=== PATIENT | male | born 1945 | race Caucasian/White ===

== ENCOUNTER 2024-11-02 15:54 | Emergency (ER) | payer OTHER, SELFPAY ==
--- OUTSIDE RECORDS SUMMARY | 2024-11-02 15:56 | XMS_ITS | Continuity of Care Document ---
Author Organization [place] [facility] Address [address] 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 1) Bladder cancer - cytology neg and CTU without worrisome findings - f/u [address] Chest + CT Urogram, CBC, BMP, cytology, Vit B12, PSA 2) Prostate cancer - GIOVANNI - PSA in 6 months 3) Neuroendocrine tumor of the appendix - per Dr. Jung; surveillance 4) Lung nodule - seeing thoracic at [facility] 11/06/24 michelle Not available 10/22/2024 11:56:23 Plan of Treatment Reminders Order Date Submit Date Provider Last Modified By Organization Details Last Modified Time Details Appointments None recorded. Lab None recorded. Referral thoracic surgeon referral - h/o bladder cancer, new 2 cm lung nodule 2024 025 MARIA DE JESUS Puentes MD, [facility] - [facility], [address], [place], [address], 5 12:01:01 Procedures None recorded. Surgeries None recorded. Imaging None recorded. Medication Orders None recorded. Patient TargetsNo targets recorded. Patient InstructionsNo instructions recorded. Reason for Referral Thoracic Surgeon Referral fo r Malignant neoplasm of urinary bladder h/o bladder cancer, new 2 cm lung nodule Referring Physician: Keegan Echeverria, Urology, Encounter Date: 10/22/2024 Results Created Date Observation Date Name Description Value Unit Range Abnormal Flag Note LastModifiedBy Organization Detail LastModifiedTime 10/21/1910/20/2024 CT, chest + abdom en + pelvi s, w/ contr ast No observ ation record ed. [facility] [address] [place], [address], 10/22/2024 11:41:36 10/21/1910/20/2024 CT, urogr am No observ ation record ed. [facility] [address] [place], [address], 10/22/2024 11:41:36 Result Notes None recorded. Problems Name Problem SNOMED Code Status Onset Date Resolution Date Notes Provider Name and Address Organization Details Recorded Time Malignant neoplasm of urinary bladder 809596380 Active 2021 Teresa tadeo [facility] 4 13:38:39 Malignant tumor of prostate 809772369 Active 2022 Keegan butt MD, PHD [address], [address] , 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 2013375150110 00 Active 2017 Teresa tadeo [facility] 4 13:38:39 Myocardial infarction 50618839 Active 2013 Teresa tadeo, [facility] 4 13:38:39 Eruption 227548826 Active 2008 Teresa tadeo [facility] 4 13:38:39 Patient encounter status 796593909 Active 2009 Teresa tadeo [facility] 4 13:38:39 Dyslipidemi a 253395973 Active 2010 Teresa tadeo [facility] 4 13:38:39 Hypertensiv e disorder 65931243 Active 2014 Teresa tadeo [facility] 4 13:38:39 Coronary arterioscle rosis 16102544 Active 2013 Teresa tadeo [facility] 4 13:38:39 Rheumatoid arthritis 78595838 Active 2009 Teresa tadeo [facility] 4 13:38:39 Typical atrial flutter 838398264 Active Teresa tadeo [facility] 4 13:38:40 Pulmonary emphysema 10798072 Active 2014 Teresa tadeo [facility] 4 13:38:40 Problem Notes None recorded. Procedures Surgical History Date Name Laterality Status Provider Name and Address Organization Details Recorded Time 10/23/19 25 COMPLEX VISIT completed Angella Stover [facility] 10/15/2024 10:40:26 04/23/20 24 COMPLEX VISIT completed Keegan odell MD, PHD [address] [place] [address], [address], [facility] 04/23/2024 15:27:51 03/06/20 24 COMPLEX VISIT completed Emiliana Ellis PA-C [address] [place] [address],[address], [address], [facility] 03/06/2024 13:56:56 10/26/19 24 COMPLEX VISIT completed Keegan odell MD, PHD [address] [place] [address],[address], [place], [address], [facility] 10/26/2023 11:30:38 10/26/19 24 BEVERAGE SPECIALIST/blood draw completed Quintin Rincon [facility] 10/26/2023 10:52:25 11/17/19 23 Cystoscopy- male completed Keegan odell MD, PHD [address] [place] [address],[address], [place], [address], [facility] 11/16/2022 09:48:08 10/20/19 23 Blood Draw/BEVERAGE SPECIALIST/PSA RESULTS completed Keegan odell MD, PHD [address] [place] [address],[address], [place], [address], [facility] 10/19/2022 10:57:18 10/05/19 22 complete cystectomy completed Shazia Baires [facility] 10/20/2021 11:39:47 08/01/19 22 TRANSURETHRAL RESECTION OF BLADDER TUMOR (SURG) completed Irina Gould [facility] 08/31/2021 16:31:21 05/12/20 21 Cystoscopy- male completed James Snyder MD [address] [place] [address],[address], [place], [address], [facility] 05/12/2021 12:34:03 03/01/20 21 UroCuff completed Quintin Rincon [facility] 03/02/2021 12:01:51 03/01/20 21 Bladder Scan completed Quintin Rincon [facility] 03/02/2021 11:56:17 07/30/19 17 colonoscopy completed Angella [facility]over [facility] 09/14/2021 10:54:28 04/29/19 84 Cholecystectomy completed Stephie Dennis [facility] 05/10/2021 12:08: Imaging Results None recorded. Procedure Notes None recorded. Medical Equipment None Reported. Medications Name Sig Start Date Stop Date Status Note LastModified by Organization Details LastModified Time lidoc/predn /[place]/chelsy r/nysta DIANE, RINSE AND SPIT 15ML TO 30ML EVERY 4 HOURS NEEDED 10/19 completed Not Available Not Available Not Available lidoc/diphe /[place]/pred n/nysta SWISH, RINSE AND SPIT 15-30 ML EVERY 4 HOURS NEEDED 10/19 completed Not Available Not Available Not Available nystat/qdry l/lido/pred /maal SHAKE WELL AND TAKE 15-30MLS BY MOUTH EVERY FOUR HOURS NEEDED. DO NOT SWALLOW. 10/19 completed Not Available Not Available Not Available ascorbic acid (vitamin C) 1,000 mg tablet 1000 mg by oral route. active Not Available Not Available No t Available prednisone 10 mg tablet TAKE THREE TABLETS BY MOUTH EVERY DAY FOR 2 DAYS THEN TAKE TWO TABLETS BY MOUTH EVERY DAY FOR 2 DAYS THEN TAKE ONE TABLET BY MOUTH EVERY DAY 10/25 completed Not Available Not Available Not Available doxycycline hyclate 100 mg capsule Take 1 capsule twice a day by oral route. 10/19 completed Not Available Not Available Not Available atorvastati n 20 mg tablet TAKE ONE TABLET BY MOUTH AT BEDTIME active Not Available Not Available No t Available prednisolon e sodium phosphate 15 mg/5 mL (3 mg/mL) oral solution 10/19 completed Not Available Not Available Not Available oxybutynin chloride ER 10 mg tablet,exte nded release 24 hr TAKE ONE TABLET BY MOUTH EVERY DAY 10/19 completed Not Available Not Available Not Available azithromyci n 250 mg tablet TAKE TWO TABLETS BY MOUTH ONE DOSE ON THE FIRST DAY, THEN TAKE ONE DAILY THEREAFTE R. 04/23 completed Not Available Not Available Not Available Lidocaine Viscous 2 % mucosal solution SWISH AND SPIT 15MLS BY MOUTH EVERY 4 HOURS IF NEEDED (MOUTH PAIN) 10/19 completed Not Available Not Available Not Available amiodarone 200 mg tablet TAKE ONE TABLET BY MOUTH EVERY DAY 01/18 completed Not Available Not Available Not Available hydrocodone 5 mg-acetamin ophen 325 mg tablet TAKE ONE TABLET BY MOUTH EVERY 6 HOURS NEEDED FOR SEVERE PAIN. MAXIMUM DAILY DOSE IS 4 TABLETS 10/22 completed Not Available Not Available Not Available prednisone 20 mg tablet TAKE TWO TABLETS BY MOUTH EVERY DAY WITH A MEAL FOR 5 DAYS 10/25 completed Not Available Not Available Not Available sennosides 8.6 mg-docusate sodium 50 mg tablet 0 {tbl}s by oral route. 2021 active Not Available Not Available Not Avai lable oxycodone 5 mg/5 mL oral solution TAKE 5MLS BY MOUTH EVERY 4 HOURS IF NEEDED FOR PAIN. MAY TAKE LESS THAN 5MLS AT A TIME. DO NOT EXCEED 5MLS BY MOUTH EVERY 4 HOURS. 10/19 completed Not Available Not Available Not Available ciprofloxac in 500 mg tablet TAKE ONE TABLET BY MOUTH TWICE A DAY FOR 7 DAYS 10/20 completed Not Available Not Available Not Available tramadol 50 mg tablet TAKE ONE TABLET BY MOUTH EVERY 6 HOURS NEEDED FOR PAIN 10/22 completed Not Available Not Available Not Available triamcinolo ne acetonide 0.1 % topical cream APPLY TO AFFECTED AREA(S) TWO TIMES A DAY 10/22 completed Not Available Not Available Not Available clobetasol 0.05 % topical gel APPLY TO AFFECTED AREA(S) FOUR TO SIX TIMES PER DAY 10/19 completed Not Available Not Available Not Available ciclopirox 8 % topical solution APPLY TO AFFECTED AREA(S) AT BEDTIME active Not Available Not Available No t Available methotrexat e sodium 2.5 mg tablet TAKE FOUR TABLETS BY MOUTH ONCE WEEKLY active Not Available Not Available No t Available amiodarone 400 mg tablet 400 mg by oral route. 10/19 completed Not Available Not Available Not Available tamsulosin 0.4 mg capsule TAKE ONE CAPSULE BY MOUTH EVERY DAY AFTER A MEAL 10/19 completed Not Available Not Available Not Available benzonatate 100 mg capsule TAKE ONE CAPSULE BY MOUTH THREE TIMES A DAY NEEDED FOR COUGH 10/25 completed Not Available Not Available Not Available erythromyci n 5 mg/gram (0.5 %) eye ointment APPLY SMALL AMOUNT TO EYELID TWICE DAILY 10/22 completed Not Available Not Available Not Available nitroglycer in 0.[address] 1 TABLET UNDER THE TONGUE AT THE 1ST SIGN OF ATTACK. IF PAIN IS UNRELIEVE D OR WORSENED 5 MINS AFTER 1ST DOSE, PROMPT MEDICAL ASSISTANC 10/22 completed Not Available Not Available Not Available folic acid 1 mg tablet TAKE ONE TABLET BY MOUTH EVERY DAY active Not Available Not Available No t Available codeine 10 mg-guaifene sin 100 mg/5 mL oral liquid TAKE 10ML EVERY 4 HOURS NEEDED FOR COUGH 10/25 completed Not Available Not Available Not Available prednisolon e 15 mg/5 mL oral solution 10/19 completed Not Available Not Available Not Available cefuroxime axetil 500 mg tablet TAKE ONE TABLET BY MOUTH TWICE A DAY FOR 10 DAYS 10/25 completed Not Available Not Available Not Available levofloxaci n 750 mg tablet TAKE ONE TABLET BY MOUTH EVERY DAY FOR 5 DAYS 10/25 completed Not Available Not Available Not Available albuterol sulfate HFA 90 mcg/actuati on aerosol inhaler INHALE TWO PUFFS BY MOUTH EVERY 4 HOURS WHILE AWAKE active Not Available Not Available No t Available ferrous sulfate 325 mg (65 mg iron) tablet,liza yed release TAKE ONE TABLET BY MOUTH TWICE A DAY WITH MEALS active Not Available Not Available No t Available fluticasone propionate 50 mcg/actuati on nasal spray,suspe nsion APPLY TWO SPRAYS INTO EACH NOSTRIL EVERY DAY active Not Available Not Available No t Available doxycycline hyclate 100 mg tablet TAKE ONE TABLET BY MOUTH TWICE A DAY FOR 10 DAYS 03/06 completed Not Available Not Available Not Available finasteride 5 mg tablet TAKE ONE TABLET BY MOUTH EVERY MORNING 10/19 completed Not Available Not Available Not Available amoxicillin 875 mg-potassiu m clavulanate 125 mg tablet TAKE 1 TABLET BY MOUTH TWICE DAILY WITH MEALS FOR 10 DAYS 10/25 completed Not Available Not Available Not Available oxycodone 5 mg tablet TAKE ONE TABLET BY MOUTH EVERY 6 HOURS NEEDED FOR PAIN active Not Available Not Available No t Available metoprolol tartrate 25 mg tablet TAKE ONE-HALF TABLET BY MOUTH EVERY DAY 10/19 completed Not Available Not Available Not Available chlorhexidi ne gluconate 0.12 % mouthwash 10ML SWISH AND SPIT FOR 30 SECONDS TWICE DAILY FOR ONE WEEK AFTER PROCEDURE . START TOMORROW 10/22 completed Not Available Not Available Not Available cholecalcif cade (vitamin D3) 25 mcg (1,000 unit) tablet 1000 units by oral route. 2012 active Not Available Not Available Not Avai lable Aerochamber Plus Flow-Vu USE WITH INHALER 10/19 completed Not Available Not Available Not Available Xarelto 20 mg tablet TAKE ONE TABLET BY MOUTH EVERY DAY WITH EVENING MEAL active Not Available Not Available No t Available Myrbetriq 50 mg tablet,exte nded release TAKE ONE TABLET BY MOUTH EVERY DAY 10/19 completed Not Available Not Available Not Available Breo Ellipta 100 mcg-25 mcg/dose powder for inhalation INHALE ONE PUFF BY MOUTH EVERY DAY active Not Available Not Available No t Available Incruse Ellipta 62.5 mcg/actuati on powder for inhalation INHALE 1 PUFF BY MOUTH ONCE DAILY, DISCARD INHALER 6 WEEKS AFTER OPENING OR WHEN COUNTER READS 0. active Not Available Not Available No t Available Trelegy Ellipta 200 mcg-62.5 mcg-25 mcg powder for inhalation INHALE ONE PUFF BY MOUTH EVERY DAY active Not Available Not Available No t Available Vitals Date Recorded Body height Body mass index (BMI) Body weight Provider Name and Address Organization Details Last Updated DateTime 10/22/2024 180.34 cm 26.1 kg/m2 70767.77 g Keegan miller MD, PHD [address] [place] [address], [address], [place] [facility] 10/22/2024 11:27:36 Social History Question Answer Notes LastModified by Organizat ion Details LastModified Time Tobacco Smoking Status [facility] 12:08:01 What Is Your Level Of Alcohol Consumption? None Information not available 05/10/2021 Are You Currently Employed? No RETIRED Information not available 05/10/2021 When Did You Quit Smoking? 1-5yearssin sherronastcieben ette QUIT: 07/14/2017 Information not available 05/10/2021 Race WHITE Information no t available 05/10/2021 Ethnicity Not /La feli Information not available 05/10/2021 Preferred Language Tamazight Information not available 05/10/2021 Recreational Drug Use No Information not available 05/10/2021 Could You Be ? No Information not available 05/10/2021 What Was The Date Of Your Most Recent Tobacco Screening? 10/22/2024 michelle Information not available 10/22/2024 What Is Your Relationship Status? [place] Information not available 05/10/2021 Do You Use Any Illicit Or Recreational Drugs? No [place] Information not available 05/10/2021 How Many Years Have You Smoked Tobacco? 51.00 [place] Information not available 05/10/2021 Do You Or Have You Ever Used Any Other Forms Of Tobacco Or Nicotine? No [place] Information not available 05/10/2021 Sex: Unknown Functional Status None recorded. Mental Status None recorded. Family History Relationship Description Onset Age of this Age Resolved Age Notes LastModified by Organization Details LastModified Time Mother Family history of diabetes mellitus ts[place]ard Not available 05/10 12:12:25 Father Family history of cardiac disorder Not available 05/10 12:12:33 Medical History Condition Response High Blood Pressure Y Kidney Stones N Depression N Sexually Transmitted Infection N Cancer Y Bleeding Disorder N Lung Disease Y GERD/Acid Reflux N High Cholesterol N Diabetes N Heart Disease Y Immunizations Vaccine Type Date Status Note Provider Nam e and Address Organization Details Recorded Time Influenza, adjuvanted, trivalent, PF 9 completed Irina [place] null, [facility] 07/18/2023 17:39:16 Influenza, adjuvanted, trivalent, PF 7 completed Irina Luis Fernando null, [facility] 07/18/2023 17:39:16 Influenza, adjuvanted, trivalent, PF 8 completed Irina Luis Fernando null, [facility] 07/18/2023 17:39:16 Influenza, adjuvanted, quadrivalent, PF 0 completed Irina [place] null, [facility] 07/18/2023 17:39:16 Influenza, adjuvanted, quadrivalent, PF 1 completed Irina [place] null, [facility] 07/18/2023 17:39:16 Tdap 2 completed Irina Luis Fernando null, [facility] 07/18/2023 17:39:31 Tdap 9 completed Magali Conti null, [facility] 07/19/2023 14:47:35 Influenza, high-dose, trivalent, PF 6 completed Irina [place] null, [facility] 07/18/2023 17:39:16 Influenza, high-dose, trivalent, PF 5 completed Irina [place] null, [facility] 07/18/2023 17:39:16 Influenza, split virus, trivalent, preservative 3 completed Irina [place] null, [facility] 07/18/2023 17:39:32 Influenza, split virus, trivalent, preservative 1 completed Magali Teska null, [facility] 07/19/2023 14:47:35 Influenza, split virus, trivalent, preservative 3 completed Irina Luis Fernando null, [facility] 07/18/2023 17:39:32 Td (adult), 2 Lf tetanus toxoid, preservative free, adsorbed 9 completed Magali Teska null, [facility] 07/19/2023 14:49:08 Influenza, split virus, quadrivalent, PF 4 completed Irina [place] null, [facility] 07/18/2023 17:39:32 zoster recombinant 3 completed Magali Teska null, [facility] 07/19/2023 14:48:32 zoster recombinant 3 completed Magali Teska null, [facility] 07/19/2023 14:49:08 Influenza, adjuvanted, quadrivalent, PF 3 completed Magali Teska null, [facility] 07/19/2023 14:49:08 Influenza, adjuvanted, quadrivalent, PF 2 completed Magali Teska null, [facility] 07/19/2023 14:48:32 COVID-19, mRNA, LNP-S, PF, 30 mcg/0.3 mL dose, parminder-sucrose 2 completed Magali Teska null, [facility] 07/19/2023 14:47:35 COVID-19, mRNA, LNP-S, bivalent, PF, 30 mcg/0.3 mL dose 2 completed Magali tadeo [facility] 07/19/2023 14:48:08 COVID-19, mRNA, LNP-S, PF, 50 mcg/0.5 mL 3 completed Not Available [facility] 10/22/2024 10:28:41 Influenza, adjuvanted, trivalent, PF 4 completed Not Available [facility] 10/22/2024 10:28:41 RSV, bivalent, protein subunit RSVpreF, diluent reconstituted, 0.5 mL, PF 4 completed Not Available [facility] 10/22/2024 10:28:41 COVID-19, mRNA, LNP-S, PF, 30 mcg/0.3 mL dose 1 completed Irina tadeo [facility] 07/18/2023 17:39:31 COVID-19, mRNA, LNP-S, PF, 30 mcg/0.3 mL dose 1 completed Irina tadeo [facility] 07/18/2023 17:39:31 COVID-19, mRNA, LNP-S, PF, 30 mcg/0.3 mL dose 1 completed Irina tadeo [facility] 07/18/2023 17:39:31 [facility] 13 [facility] 17:39:32 pneumococcal polysaccharide PPV23 9 completed Magali tadeo [facility] 07/19/2023 14:47:35 Past Encounters Encounter ID Performer Location Encounter Start Date Encounter Closed Date Diagnosis/Indication Diagnosis SNOMED-CT Code Diagnosis ICD10 Code Diagnosis Note [id number] Keegan murry MD, PHD [facility] [address] [address] 10/22/2024 10:26:27 10/27/2024 16:33:56 Malignant neoplasm of urinary bladder 975316441 C67.9 Malignant tumor of prostate 355602901 C61 Urostomy present 2364654 04 Z93.6 Health Concerns Section Related Observation LastModified by Organization Detai ls LastModified Time None Recorded Concern Status LastModified by Organization Details LastModified Time None Recorded Payers Encounter Date Sequence Insurance Name Policy Number Policy Bruner Covered Member ID Bruner Member ID Guarantor Name 10/22/2024 1 [employer] Paul Barry [id number] Paul Barry Notes Date Note Type Note Provider Name and Address Organization Details Recorded Time 10/22/2024 text/html 79M s/p RC/IC on 10/04/21 for pT1N0 bladder cancer (-SMS, -LVI, 0/ LN) and incidental pT2N0 [place] 3+4=7 prostate cancer (-SMS, -SVI, -LVI, 0/ LN). 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 No recent hematuria. Here with and daughter. Imagin09/15/21 CT A/P: multi-focal bladder wall masses occupying >50% of the bladder; asymmetric enlargement of the prostate L>R; minimal dilation of right distal ureter; no evidence of distant mets01/04/22: CT A/P: LLL pneumonia, no hydro, seroma in right pelvis04/17/22: CT C/A/P: no hydro, no evidence recurrence10/16/22: CT C/A/P: no hydro, no evidence recurrence04/09/23: CT C/A/P: no hydro, no evidence recurrence, stable left 6th rib lesion10/14/23: CT C/A/P: no hydro, no evidence recurrence, + LLL pneumonia03/13/24: CT C/A/P: no hydro, new 5mm RUL pulmonary nodule, stable indeterminate right mid renal lesions10/20/24: CT C/A/P: no hydro, no LAD, no evidence metastasis, new 2 cm RUL pulmonary nodule, stable indeterminate right mid renal lesions Labs:10/11/21 Cr 0.84, Hgb 10.83/ NITIN Cr 0.7612/16/21: Cr 1.09, Hgb 12.09/; Cr 0.98, Hgb 13.5, PSA <0.033/: Cr 0.90, Hgb 13.1, cytol NEM9/03/21: Cr 0.94, Hgb 13.2, B12 482, cytol NEM3/: Cr 0.98, Hgb 12.19/: cytol NEM3/: cytol NEM, Cr 0.86, Hgb 12.4, B12 470 PSA Results3: <0.049/03/21: <0.023/: <0.043/: <0.02 PMH: CAD s/p stent (>10 yrs ago), COPD, HL, RA (methotrexate)PSH: open choleSocHx: can walk a block, riding lawnmowerOcc:Tob: 1 ppd x 50 yrs; quit 2016EtOH: denies FamHx:no bladder ca Keegan Moralez MD, PHD [address] [facility],[address], [place], [address], [facility] 10/22/2024 11:57:32
[2024-11-02 15:57] VITALS: BP 137/100; PULSE 66; RESP 18; TEMP 37.2; O2SAT 97; BMI 26.4
--- OUTSIDE RECORDS SUMMARY | 2024-11-02 15:57 | XMS_ITS | Continuity of Care Document ---
Author Organization [facility] Address [address] [place] [address] Phone Care Team Providers Care Healthcare Liaison Name Role Phone Doretha CASTILLO, Silvano Unavailable Unavailable Allergies, Adverse Reactions, Alerts Substance Reaction Status Criticality No Known Allergies Active No Inform ation Medications Medication Instructions Dosage Effective Dates (start - stop) Status Comments METHOTREXATE SODIUM 2.5MG TABS TAKE 4 TBALETS BY MOUTH ONCE WEEKLY - Active folic acid 1 mg tablet take 1 tablet (1M G) by oral route every day - Active atorvastatin 20 mg tablet take 1 tablet by oral route every day 20 MG - Active fluticasone propionate 50 mcg/actuation nasal spray,suspension inhale 1 spray by intranasal route every day in each nostril as needed - Active Senokot-S 8.6 mg-50 mg tablet take 1 tablet by oral route every day 1 tablet - Active Xarelto 20 mg tablet take 1 tablet by or al route every day with the evening meal 20 MG - Active albuterol sulfate HFA 90 mcg/actuation aerosol inhaler inhale 2 puff by inhalation route every 4 - 6 hours as needed - Active Vitamin C 1,000 mg tablet take 1 Tablet by Oral route every day 1 Tablet - Active nitroglycerin 0.[address] 1 tablet by sublingual route at the 1st sign of attack; may repeat every 5 min until relief; if pain persists after 3 tablets in 15 min, prompt medical attention is recommended 0.4 MG - Active Fish Oil 100 mg-160 mg-1,000 mg capsule take 1 Tablet by Oral route every day 1 Tablet - Active aspirin 81 mg tablet,delayed release take 1 tablet by oral route every day 81 MG - Active Vitamin D3 2,000 unit Cap Take 1 daily - Active Procedures Procedure Date Office/Outpatient Visit, Est Complex e/m visit add on Routine Venipuncture Assay Of Serum Albumin Assay Of Creatinine Transferase (Ast) (Sgot) Alanine Amino (Alt) (Sgpt) Complete Cbc WAuto Diff Wbc X-Ray Exam Of Knee, 1 Or 2v Drain/Inject, Joint/Bursa, Major 2023 Betamethasone Acet And Sod Phosp 2023 Office/Outpatient Visit, Est Surgical Trays Specimen Handling Office/Outpatient Visit, Est X-Ray Exam Of Knee, 3 Office/Outpatient Visit, Est Office/Outpatient Visit, Est Office/Outpatient Visit, Est Office/Outpatient Visit, Est Office/Outpatient Visit, Est Office/Outpatient Visit, Est Office/Outpatient Visit, Est Office/Outpatient Visit, Est Office/Outpatient Visit, Est Routine Venipuncture Assay Of Serum Albumin Assay Of Creatinine Transferase (Ast) (Sgot) Alanine Amino (Alt) (Sgpt) Complete Cbc WAuto Diff Wbc Office/Outpatient Visit, Est Office/Outpatient Visit, Est Office/Outpatient Visit, Est Office/Outpatient Visit, Est Office/Outpatient Visit, Est Office/Outpatient Visit, Est Office/Outpatient Visit, Est Office/Outpatient Visit, Est Office/Outpatient Visit, Est Office/Outpatient Visit, Est Routine Venipuncture Lactate (Ld) (Ldh) Enzyme Office/Outpatient Visit, Est Office/Outpatient Visit, Est Office/Outpatient Visit, Est Anti Rheum Drugthxpyrx'D/Gvn Advance Directives Directive Yes / No Effective Date File Name No Information Encounters Encounter Description Practice Location Reason(s) For Visit Diagnoses Date Provider Providers Copied on Encounter [facility] , [address], [place], [address], [place] tel:[phone] [facility] , No Information Skemp Silvano. [facility] [address], [place], [address], [place]. tel:[phone] [facility] , [address], [place], [address], [place] tel:[phone] [facility] , No Information 5 Skemp Silvano. [facility] [address], [place], [address], [place]. tel:[phone] Office/Outpa tient Visit, Est [facility] , [address], [place], [address], [place] tel:[phone] [facility] , Rheumatoid arthritis with rheumatoid factor of multiple sites without organ or systems involvementO ther intermediate (current) drug therapyEffus ion of right kneeOther chondrocalci nosis, left knee 4 Skemp Silvano. [facility] [address], [place], [address], [place]. tel:[phone] Referring Provider: Silvano Coyne A, [facility] [address], [place], [address]. tel:[phone] [facility] , [address], [place], [address], [place] tel:[phone] [facility] , No Information Sep-0 4 Skemp Silvano. [facility] [address], [place], [address], [place]. tel:[phone] Referring Provider: Silvano Coyne A, [facility] [address], [place], [address]. tel:[phone] Office/Outpa tient Visit, Est [facility] , [address], [place], [address], [place] tel:[phone] [facility] , Rheumatoid arthritis with rheumatoid factor of multiple sites without organ or systems involvementO ther ocean transportation intermediary (current) drug therapyEffus ion of right kneeOther chondrocalci nosis, left knee Sep-0 4 Skemp Silvano. [facility] [address], [place], [address], [place]. tel:[phone] Referring Provider: Silvano Bishop, [facility] [address], [place], [address]. tel:[phone] Office/Outpa tient Visit, Est [facility] , [address], [place], [address], [place] tel:[phone] [facility] , Rheumatoid arthritis with rheumatoid factor of multiple sites without organ or systems involvementP ain in left kneeOther ocean transportation intermediary (current) drug therapyPrima ry osteoarthrit is of left kneeOther chondrocalci nosis, left knee Vinnie-2 4 Skemp Silvano. [facility] [address], [place], [address], [place]. tel:[phone] Referring Provider: Silvano Bishop, [facility] [address], [place], [address]. tel:[phone] [facility] , [address], [place], [address], [place] tel:[phone] [facility] , No Information 3 Skemp Silvano. [facility] [address], [place], [address], [place]. tel:[phone] Referring Provider: Silvano Bishop, [facility] [address], [place], [address]. tel:[phone] Office/Outpa tient Visit, Est [facility] , [address], [place], [address], [place] tel:[phone] [facility] , Rheumatoid arthritis with rheumatoid factor of multiple sites without organ or systems involvementO ther ocean transportation intermediary (current) drug therapyPain in lt kneeHyponatr emiaOther chondrocalci nosis, left knee 3 Skemp Silvano. [facility] [address], [place], [address], [place]. tel:[phone] Referring Provider: Silvano Bishop, [facility] [address], [place], [address]. tel:[phone] Office/Outpa tient Visit, Est [facility] , [address], [place], [address], [place] tel:[phone] [facility] , Rheumatoid arthritis with rheumatoid factor of multiple sites without organ or systems involvementO ther ocean transportation intermediary (current) drug therapyPain in unspecified knee 3 Skemp Silvano. [facility] [address], [place], [address], [place]. tel:[phone] Referring Provider: Silvano Bishop, [facility] [address], [place], [address]. tel:[phone] Office/Outpa tient Visit, Est [facility] , [address], [place], [address], [place] tel:[phone] [facility] , Rheumatoid arthritis with rheumatoid factor of multiple sites without organ or systems involvementO ther ocean transportation intermediary (current) drug therapy 3 Skemp Silvano. [facility] [address], [place], [address], [place]. tel:[phone] Referring Provider: Silvano Bishop, [facility] [address], [place], [address]. tel:[phone] Office/Outpa tient Visit, Est [facility] , [address], [place], [address], [place] tel:[phone] [facility] , Rheumatoid arthritis with rheumatoid factor of multiple sites without organ or systems involvementO ther intermediate (current) drug therapy 2 Skemp Silvano. [facility] [address], [place], [address], [place]. tel:[phone] Referring Provider: Silvano Bishop [facility] [address], [place], [address]. tel:[phone] Office/Outpa tient Visit, Est [facility] , [address], [place], [address], [place] tel:[phone] [facility] , Rheumatoid arthritis with rheumatoid factor of multiple sites without organ or systems involvementO ther ocean transportation intermediary (current) drug therapy Skemp Silvano. [facility] [address], [place], [address], [place]. tel:[phone] Referring Provider: Silvano Bishop, [facility] [address], [place], [address]. tel:[phone] Office/Outpa tient Visit, Est [facility] , [address], [place], [address], [place] tel:[phone] [facility] , Rheumatoid arthritis (chief complaint)Mo nitor Chronic High Risk Meds (chief complaint) Rheumatoid arthritis with rheumatoid factor of multiple sites without organ or systems involvementO ther intermediate (current) drug therapy Skemp Silvano. [facility] [address], [place], [address], [place]. tel:[phone] Referring Provider: Silvano Bishop, [facility] [address], [place], [address]. tel:[phone] Office/Outpa tient Visit, Est [facility] , [address], [place], [address], [place] tel:[phone] [facility] , Rheumatoid arthritis (chief complaint)Mo nitor Chronic High Risk Meds (chief complaint) Rheu arthritis w rheu factor mult site w/o org/sys involvOther intermediate (current) drug therapy Sep-1 4-202 0 Skemp Silvano. [facility] [address], [place], [address], [place]. tel:[phone] Referring Provider: Silvano Bishop, [facility] [address], [place], [address]. tel:[phone] [facility] , [address], [place], [address], [place] tel:[phone] [facility] , No Information 0 Skemp Silvano. [facility] [address], [place], [address], [place]. tel:[phone] Office/Outpa tient Visit, Est [facility] , [address], [place], [address], [place] tel:[phone] [facility] , Rheumatoid arthritis (chief complaint)Mo nitor Chronic High Risk Meds (chief complaint) Rheu arthritis w rheu factor mult site w/o org/sys involvOther intermediate (current) drug therapy 0 Skemp Silvano. [facility] [address], [place], [address], [place]. tel:[phone] Referring Provider: Silvano Bishop, [facility] [address], [place], [address]. tel:[phone] Office/Outpa tient Visit, Est [facility] , [address], [place], [address], [place] tel:[phone] [facility] , Rheumatoid arthritis (chief complaint)Mo nitor Chronic High Risk Meds (chief complaint) Rheu arthritis w rheu factor mult site w/o org/sys involvOther ocean transportation intermediary (current) drug therapy 9 Skemp Silvano. [facility] [address], [place], [address], [place]. tel:[phone] Referring Provider: Silvano Bishop, [facility] [address], [place], [address]. tel:[phone] Office/Outpa tient Visit, Est [facility] , [address], [place], [address], [place] tel:[phone] [facility] , Rheumatoid arthritis (chief complaint)Mo nitor Chronic High Risk Meds (chief complaint) Rheu arthritis w rheu factor [facility] w/o org/sys involvOther intermediate (current) drug therapy 8 Skemp Silvano. [facility] [address], [place], [address], [place]. tel:[phone] Referring Provider: Silvano Bishop, [facility] [address], [place], [address]. tel:[phone] Office/Outpa tient Visit, Est [facility] , [address], [place], [address], [place] tel:[phone] [facility] , Rheumatoid arthritis (chief complaint) Rheumatoid arthritis with rheumatoid factor of multiple sites without organ or systems involvementO ther intermediate (current) drug therapy 8 Skemp Silvano. [facility] [address], [place], [address], [place]. tel:[phone] Referring Provider: Silvano Bishop, [facility] [address], [place], [address]. tel:[phone] Office/Outpa tient Visit, Est [facility] , [address], [place], [address], [place] tel:[phone] [facility] , Rheumatoid arthritis (chief complaint)Mo nitor Chronic High Risk Meds (chief complaint) Rheumatoid arthritis with rheumatoid factor of multiple sites without organ or systems involvementO ther ocean transportation intermediary (current) drug therapy Skemp Silvano. [facility] [address], [place], [address], [place]. tel:[phone] Referring Provider: Silvano Bishop, [facility] [address], [place], [address]. tel:[phone] Office/Outpa tient Visit, Est [facility] , [address], [place], [address], [place] tel:[phone] [facility] , Rheumatoid arthritis (chief complaint)Mo nitor Chronic High Risk Meds (chief complaint) Rheumatoid arthritis with rheumatoid factor of multiple sites without organ or systems involvementO ther intermediate (current) drug therapy Skemp Silvano. [facility] [address], [place], [address], [place]. tel:[phone] Referring Provider: Silvano Bishop [facility] [address], [place], [address]. tel:[phone] Office/Outpa tient Visit, Est [facility] , [address], [place], [address], [place] tel:[phone] [facility] , Rheumatoid arthritis (chief complaint)Mo nitor Chronic High Risk Meds (chief complaint) Rheumatoid arthritis with rheumatoid factor of multiple sites without organ or systems involvementH ematuriaOthe r intermediate (current) drug therapyPerso nal history of nicotine dependence 6 Skemp Silvano. [facility] [address], [place], [address], [place]. tel:[phone] Referring Provider: Silvano Bishop, [facility] [address], [place], [address]. tel:[phone] Office/Outpa tient Visit, Est [facility] , [address], [place], [address], [place] tel:[phone] [facility] , Rheumatoid arthritis (chief complaint)Mo nitor Chronic High Risk Meds (chief complaint) Rheumatoid arthritis with rheumatoid factor of multiple sites without organ or systems involvementO ther ocean transportation intermediary (current) drug therapyHemat uria 6 Skemp Silvano. [facility] [address], [place], [address], [place]. tel:[phone] Referring Provider: Silvano Bishop [facility] [address], [place], [address]. tel:[phone] Office/Outpa tient Visit, Est [facility] , [address], [place], [address], [place] tel:[phone] [facility] , Rheumatoid arthritis (chief complaint)Mo nitor Chronic High Risk Meds (chief complaint) Rheumatoid arthritis with rheumatoid factor of multiple sites without organ or systems involvementO ther intermediate (current) drug therapy 5 Skemp Silvano. [facility] [address], [place], [address], [place]. tel:[phone] Referring Provider: Silvano Coyne A, [facility] [address], [place], [address]. tel:[phone] Office/Outpa tient Visit, Est [facility] , [address], [place], [address], [place] tel:[phone] [facility] , Rheumatoid arthritis (chief complaint)Mo nitor Chronic High Risk Meds (chief complaint) Rheumatoid [facility] 5 Skemp Silvano. [facility] [address], [place], [address], [place]. tel:[phone] Referring Provider: Silvano Coyne A, [facility] [address], [place], [address]. tel:[phone] Office/Outpa tient Visit, Est [facility] , [address], [place], [address], [place] tel:[phone] [facility] , Rheumatoid Arthritis (chief complaint)Mo nitor chronic high risk medications (chief complaint) Rheumatoid [facility] 4 Skemp Silvano. [facility] [address], [place], [address], [place]. tel:[phone] Referring Provider: Silvano Haileemp A, [facility] [address], [place], [address]. tel:[phone] Office/Outpa tient Visit, Est [facility] , [address], [place], [address], [place] tel:[phone] [facility] , Rheumatoid Arthritis (chief complaint)Mo nitor chronic high risk medications (chief complaint) Rheumatoid [facility] Drug MonitoringAb normal Liver Enzymes 4 Skemp Silvano. [facility] [address], [place], [address], [place]. tel:[phone] Referring Provider: Silvano Bishop, [facility] [address], [place], [address]. tel:[phone] Office/Outpa tient Visit, Est [facility] , [address], [place], [address], [place] tel:[phone] [facility] , Rheumatoid Arthritis (chief complaint)Mo nitor chronic high risk medications (chief complaint) Rheumatoid [facility] 3 Skemp Silvano. [facility] [address], [place], [address], [place]. tel:[phone] Referring Provider: Silvano Bishop, [facility] [address], [place], [address]. tel:[phone] Office/Outpa tient Visit, Est [facility] , [address], [place], [address], [place] tel:[phone] [facility] , Rheumatoid Arthritis (chief complaint)Mo nitor chronic high risk medications (chief complaint) Rheumatoid [facility] 3 Skemp Silvano. [facility] [address], [place], [address], [place]. tel:[phone] Referring Provider: Silvano Bishop, [facility] [address], [place], [address]. tel:[phone] Office/Outpa tient Visit, Est [facility] , [address], [place], [address], [place] tel:[phone] [facility] , Rheumatoid Arthritis (chief complaint)Mo nitor chronic high risk medications (chief complaint) Rheumatoid [facility] Mar- 2 Skemp Silvano. [facility] [address], [place], [address], [place]. tel:[phone] Referring Provider: Silvano Bishop, [facility] [address], [place], [address]. tel:[phone] Family History Family Member Type Diagnosis Age At Onset No Information Immunizations Vaccine Date Status Comments COVID-19 Moderna administered Source: Ot er Provider COVID-19 Moderna administered Source: Ot er Provider Payers Payer name Insurance type Covered green party ID elvia mejía(s) [facility] Advantage CI [id number] Social History Type Description Quantity Date Captured Comments Alcohol Use Details Unknown Caffeine Use Details Unknown Tobacco Use Status No Information Smoking Status No Information Sex Male Chief Complaint And Reason For Visit No Information Reason For Referral Reason For Referral No Information Plan Of Treatment Date Type Action Status Goal Tobacco cessation counseling completed Goal Tobacco cessation counseling completed Goal Tobacco cessation counseling completed Goal Tobacco cessation counseling completed Goal Tobacco cessation counseling completed Future Order: Radiology Order Kn ee X-ray; Limited (1 or 2 views) ([id number]), Sent on: Sent Future Order: Radiology Order Kn ee X-ray; Limited (3 views) ([id number]), Ordered on: Ordered History Of Present Illness Encounter Date Complaint History Of Prese nt Illness Rheumatoid arthritis May-10-2021 Monitor Chronic High Risk Meds Rheumatoid arthritis Monitor Chronic High Risk Meds Rheumatoid arthritis Monitor Chronic High Risk Meds Rheumatoid arthritis Monitor Chronic High Risk Meds Rheumatoid arthritis Monitor Chronic High Risk Meds Rheumatoid arthritis Rheumatoid arthritis Monitor Chronic High Risk Meds Rheumatoid arthritis Monitor Chronic High Risk Meds Rheumatoid arthritis Monitor Chronic High Risk Meds Rheumatoid arthritis Monitor Chronic High Risk Meds Rheumatoid arthritis Monitor Chronic High Risk Meds Rheumatoid arthritis Monitor Chronic High Risk Meds Functional Status Date Functional Assessmen t No Information Instructions Date Instruction Additional Infor mation No Information Assessments Type Assessment Date No Information Patient Care Teams Name Effective Dates (start - stop) Status Members No Information
--- OUTSIDE RECORDS SUMMARY | 2024-11-02 15:57 | XMS_ITS | Clinical Summary ---
Author Organization [facility] Address [address] [place] [id number] Care Team Providers Care 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 Name Role Phone Silvano Coyne MD Unavailable [phone] Tomas Weathers MD Primary Care Provider Keegan Moralez MD Unavailable + Irais Jung MD Unavailable Maria Guadalupe Dumont NP Unavailable Funmi Caro RN, BSN Unavailable [phone] Allergies Active Allergy Reactions Criticality Noted Date Comments Adhesive Rash 09/03/2013 Adhesive from the nicotine patches Medications methotrexate (RHEUMATREX) 2.5 mg tablet Take 10 mg by mouth every Sunday. 4 tabs once weekly takes pm 0 10/02/19 12 Active ascorbic acid, vitamin C, (VITAMIN C) 1,000 mg tablet Take 1,000 mg by mouth once daily. Active OMEGA-3 FATTY ACIDS-VITAMIN E ORAL Take 1 Capsule by mouth once daily. for arthritis 10/26/19 22 Active triamcinolone (ARISTOCORT; KENALOG) 0.1 % creamIndications:A cute eczema Apply topically to affected area(s) two times daily. 15 g 3 12/13/19 24 Active Trelegy Ellipta 200-62.5-25 mcg inhalerIndications :Other emphysema (HC) INHALE ONE PUFF BY MOUTH EVERY DAY 60 Each 11 04/20/20 24 Active traMADoL (ULTRAM) 50 mg tabletIndications: Primary osteoarthritis of both knees,Osteochondro ma of femur, right Take 1 Tablet (50 mg) by mouth every 6 hours if needed for Pain. 20 Tablet 05/01/20 24 Active durable medical equipment (DME)Indications:P rimary osteoarthritis of both knees,Osteochondro ma of femur, right,Other tear of medial meniscus of right knee as current injury, initial encounter,Other tear of lateral meniscus of right knee as current injury, initial encounter,Closed nondisplaced comminuted fracture of right patella, initial encounter Reddie Brace, Large 1 Each 05/01/20 24 Active rivaroxaban (Xarelto) 20 mg tabletIndications: Atrial flutter with rapid ventricular response (HC) Take 1 Tablet (20 mg) by mouth once daily with evening meal. 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 90 Tablet 2 05/29/20 24 Active sennosides-docusat e (SENOKOT S) (8.6-50 mg) tabletIndications: Constipation, acute Take 1 Tablet by mouth once daily. 90 Tablet 3 05/29/20 24 Active atorvastatin (LIPITOR) 20 mg tabletIndications: Dyslipidemia Take 1 Tablet (20 mg) by mouth at bedtime. 90 Tablet 2 05/29/20 24 Active cholecalciferol (VITAMIN D3) 1,000 unit tabletIndications: Vitamin D deficiency Take 1 Tablet (1,000 units) by mouth once daily. 90 Tablet 3 05/29/20 24 Active nitroglycerin (NITROSTAT) 0.4 mg sublingual tabletIndications: Coronary artery disease due to calcified coronary lesion Place 1 Tablet (0.4 mg) under the tongue every 5 minutes if needed for Chest Pain (For chest pain x 3 doses.). 25 Tablet 6 05/29/20 24 Active fluticasone (50 mcg per actuation) nasal solution (FLONASE)Indicatio ns:Rhinorrhea Inhale 2 Sprays in both nostrils once daily. 48 g 3 05/29/20 24 Active albuterol HFA (PRO-AIR; VENTOLIN; PROVENTIL) 90 mcg/actuation inhalerIndications :Community acquired pneumonia, unspecified laterality Inhale 2 Puffs by mouth every 4 hours while awake. 18 g 11 05/29/20 24 Active inhalational spacing deviceIndications: COPD mixed type (HC) For home use. 1 Each 05/29/20 24 Active ciclopirox (CICLODAN) 8 % topical solutionIndication s:Dermatophytosis of nail Apply topically to affected area(s) at bedtime. 6.6 mL 09/18/19 25 Active ferrous sulfate (Iron, Ferrous Sulfate,) 325 mg (65 mg iron) tabletIndications: Anemia, unspecified type Take 1 Tablet (325 mg) by mouth two times daily with meals. 60 Tablet 2 09/23/19 25 Active omeprazole 40 mg Delayed-Release capsuleIndications :Gastric reflux Take 1 Capsule (40 mg) by mouth once daily before a meal. 30 Capsule 3 11/01/19 25 Active ciclopirox solution (LOPROX) 8 % solutionIndication s:Dermatophytosis of nail Apply topically to affected area(s) at bedtime. 6.6 mL 2 07/10/20 23 025 Discontin ued(*Milka ent states no longer taking) magic mouthwash w/nystatin,benadry l,lidocaine,predni solone & maaloxIndications: History of oral lesions Swish, rinse and spit 15-30 mL every 4 hours as needed. 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 08/11/2021 Cancer Staging:Pathologic stage from 11/01/2021:Stage I(pT1, pN0, cM0) - Signed by Irais Jung MD on 11/01/2021 Presence of stent in anterio r descending branch of left coronary artery 09/27/2017 Microhematuria 02/24/2017 Hypertension 06/29/2015 COPD (chronic obstructive pulmonary disease) wit h emphysema 04/27/2015 CAD (coronary artery disease) 12/09/2013 NSTEMI (non-ST elevated myocardial infarction) 0 08/06/2013 Dyslipidemia 04/13/2011 Medication monitoring encounter 04/25/2010 Rheumatoid arthritis(714.0) 12/22/2009 Rash and other nonspecific skin eruption 009 Tobacco use disorder 03/16/2009 Malignant neoplasm of urethra Resolved Problems Problem Noted Date Diagnosed Date Resolved Date Chest pain 08/06/2013 12/09/2013 Elevated troponin 08/06/2013 12/09/2013 Vitamin D deficiency 10/02/2011 014 Typical atrial flutter 10/05 Encounters Date Type Department Care Team Description 10/31/2024 10:30 AM CDT Office Visit [facility] [address] [place] [address] Tomas Weathers MD ER Follow up (Left arm numbness and tingling); Abdominal Pain (Frequent stools) 10/31/2024 Travel 10/24/2024 4:34 PM CDT - 10/24/2024 6:49 PM CDT Emergency [facility] [address] [place] [address] Anjelica Cook PA Royston, Hilary Michelle, MD Numbness and tingling in left arm (Primary Dx) Discharge Disposition: Home Self Care 10/24/2024 Travel 10/20/2024 9:26 AM CDT - 10/20/2024 11:59 PM CDT Hospital Encounter [facility] [address] [place] [address] 10/20/2024 9:25 AM CDT Hospital Encounter [facility] [address] [place] [address] Keegan Moralez MD Malignant neoplasm of urinary bladder, unspecified site (HC) 10/20/2024 Lab Requisition [facility] [address] [place] [address] Keegan Moralez MD 10/20/2024 Travel 09/22/2024 Telephone [facility] [address] [place] [address] Irais Jung MD Results 09/18/2024 1:45 PM FAMILY ASSESSMENT WORKER Office Visit [facility] [place] [address] [address] Brando Flanagan DPM Follow Up (Toenail fungus recheck) 09/18/2024 11:30 AM FAMILY ASSESSMENT WORKER Office Visit [facility] [address] [place] [address] Irais Jung MD Follow Up (Malignant neoplasm of urinary bladder) 09/18/2024 Travel 09/16/2024 8:23 AM FAMILY ASSESSMENT WORKER - 09/16/2024 11:59 PM FAMILY ASSESSMENT WORKER Hospital Encounter [facility] [address] [place] [address] Malignant neoplasm of urinary bladder, unspecified site (HC); Primary prostate adenocarcinoma (HC); Neuroendocrine neoplasm of appendix (HC); Malignant neoplasm of urinary bladder, unspecified site (HC) [C67.9] 09/16/2024 8:00 AM FAMILY ASSESSMENT WORKER Office Visit [facility] [address] [place] [address] Fartun Li PA Consult (Mouth sore) 09/16/2024 Travel 09/12/2024 Telephone [facility] [address] [place] [address] Brando Flanagan DPM Appointment Request (TOENAIL CONCERN) from Last 3 Months Immunizations Immunization Administration Dates Next Due AMB INFLUENZA IIV3 (AGE 65+ YRS) PF (Flu Clinic Only) 04/18/2019,05/03/2018 COVID-19 VACCINE SPIKEVAX (M ODERNA 50MCG/0.5ML) 12YO+ PFS 05/17/2023 COVID-19 vaccine (Moderna 100mcg/0.5mL) PF, MDV 05/18/2021 COVID-19 vaccine (Free & Clear-Bio NTech 30mcg/0.3mL) 12YO+ BIVALENT PF, MDV 04/20/2022 COVID-19 vaccine (Pfizer-Bio NTech 30mcg/0.3mL) 12YO+ LOREN-SUCROSE PF, MDV 12/05/2021 COVID-19 vaccine (Pfizer-Bio NTech 30mcg/0.3mL) PF, MDV 05/18/2021,10/12/2020,09/21/2020 Influenza, High-dose Inactivated 05/01/2016,100 03/2015 Influenza, High-dose Quadriv alent Inactivated 05/03/2021 Influenza, IIV3 (Age >=3 years) 05/26/2013,08/09,09/15/2010 Influenza, IIV4 07/15/2014 Influenza, Inactivated AIIV4 (Age 65+ Years) Preserv Free 04/10/2023,05/19/2022,05/03/2021,04/06 Influenza, Inactivated IIV3 (Age 65+ Years) Preserv Free 05/16/2024,04/20/2017 Pneumococcal Poly,23-Valent (Pneumovax) 03/16/2009 Pneumococcal conj 13-Valent (Prevnar 13) 05/01/2016 RSV, Bivalent Vaccine Recons tituted (Abrysvo 120MCG/0.5mL) 06/23/2024 Td (Age >=7 Years) 12/23/1998 Tdap 08/11/2021,03/16/2009 Tuberculin Skin Test, Unspecified 10/12/2021 Zoster (Shingrix-RZV, recombinant) 01/09/2023, Family History Medical History Relation Name Comments Good Health Daughter all 4 good heal th Heart Disease Father DC Blood Disease Maternal Uncle Diabetes Mother Good Health Son Anesthesia Problem No Family History Clotting disorder No Family History Relation Name Status Comments Daughter Alive x4 all good hea lth Father passed in 1998 Maternal Uncle Mother passed in 2000 Son Alive Social History Tobacco Use Types Packs/Day Years Used Date Smoking Tobacco: Former Cigarettes 1 51 1 09/14/1965 - 07/14/2017 Passive Smoke Exposure: Never Smokeless Tobacco: Never Tobacco Cessation:Counseling Given: Not Answered Comments:Smoked from age 13 to 71. Alcohol Use Standard Drinks/Week Comments No 0 (1 standard drink = 0.6 oz pur e alcohol) none PHQ-2 Answer Date Recorded PHQ-2 TOTAL SCORE 0 05/29/2024 Social Connections Answer Date Recorded Do you often feel lonely or isolated from those around you? 0 05/29/2024 Financial Resource Strain Answer Date R ecorded Difficulty of Paying Living Expenses 3 05/29/2024 Difficulty of Paying Living Expenses Not on file 05/29/2024 Food Insecurity Answer Date Recorded Do you worry your food will run out before you are able to buy more? 1 05/29/2024 Transportation Needs Answer Date Record ed Does lack of transportation keep you from medica l appointments? 1 05/29/2024 Does lack of transportation keep you from work, meetings or getting things that you need? 1 05/29/2024 Housing Stability Answer Date Recorded What is your housing situation today? 1 05/29/2024 Interpersonal Safety Answer Date Record ed Are you being hit, kicked, p ushed or yelled at (see row info)? No 10/24/2024 Interpersonal Safety Abuse 12 - 18 Not on file 10/24/2024 Interpersonal Safety Ambulatory Vulnerability No t on file 10/24/2024 Utilities Answer Date Recorded Do you have trouble paying f or utilities (for example, heat, electricity, water, phone)? 1 05/29/2024 Sex and Gender Information Value Date Recorded Sex Assigned at Not on file Legal Sex Male 5:23 AM FAMILY ASSESSMENT WORKER Gender Identity Not on file Sexual Orientation Not on file Occupation Industry Job Start Date Job End Date retired Not on file Not on file Not on file Obstetrics History Last Filed Vital Signs Vital Sign Reading Time Taken Comments Blood Pressure 100/64 10/31/2024 10:21 AM CDT Pulse 72 10/31/2024 10:21 AM CDT Temperature 36.7 C (98 F) 10/24/2024 4:41 PM CDT Respiratory Rate 20 10/31/2024 10:21 AM CDT Oxygen Saturation 97% 10/24/2024 4:41 PM CDT Inhaled Oxygen Concentration - - Weight 85.5 kg (188 lb 8 oz) 10/31/2024 10:21 AM CDT Height 181.6 cm (5' 11.5) 10/24/2024 4:41 PM CD T Body Mass Index 25.92 10/24/2024 4:41 PM CDT Plan of Treatment Upcoming Encounters Date Type Department Care Team (Late st Contact Info) Description 11/06/2024 11:00 AM CDT Office Visit [facility] [address] [place] [address] Magdalena Hamlin PA [address] [place] [address] 12/08/2024 8:45 AM CDT Orders Only [address] [phone] [facility] 12/15/2024 8:30 AM CDT Appointment [facility] [address] [place] [address] 12/17/2024 11:15 AM CDT Office Visit [facility] [address] [place] [address] Maria Guadalupe Dumont, CURING ROOM WORKER [address] [place] [address] 12/31/2024 10:30 AM CDT Office Visit [address] [phone] Tomas Weathers MD [address] [place] [address] Health Maintenance Due Date Last Done Comments COVID-19 vaccine series (2023- season) 2024 05/17/2023, 04/20/2022, 12/05/2021, Additional history exists BMI (ht and wt on same day) for age 18+ 05/29/2025 05/29/2024, 04/01/2024, 09/20/2023, Additional history exists Depression screening for age 12+ 05/29/2025 05/29/2024, 04/09/2023, 10/05/2022, Additional history exists Medicare Wellness for age 65+ 05/30/2025, 04/09/2023, 11/02/2020, Additional history exists Tetanus booster 08/11/2031 08/11/2021, 02/27, 03/16/2009, Additional history exists Pneumococcal series for age 50+ Completed 6, 03/16/2009 Tdap Completed 08/11/2021, 03/16/2009 Zoster (shingles) series for age 50+ Completed 01/09/2023, 10/06/2022 Influenza Vaccine Completed 05/16/2024, , 05/19/2022, Additional history exists RSV vaccine for adults or Completed 06/23/2024 Procedures Procedure Name Priority Date/Time Associated Diagnosis Comments CT ANGIO HEAD AND NECK CAROTID STAT 10/24/2024 5:[address] HEAD BRAIN WO STAT 10/24/2024 5:50 PM CDT CBC WITH AUTO DIFFERENTIAL STAT 10/24/2024 4:59 PM CDT MAGNESIUM STAT 10/24/2024 4:59 PM CDT BASIC METABOLIC PANEL STAT 10/24/2024 4:59 PM CDT CBC WITH AUTO DIFFERENTIAL STAT 10/24/2024 4:59 PM CDT LAB TRACKING EVENT Routine 10/20/2024 10 :34 AM CDT Malignant neoplasm of bladder, unspecified (HC) PSA TOTAL Routine 10/20/2024 10:34 AM CDT Malignant neoplasm of bladder, unspecified (HC) VITAMIN B12 Routine 10/20/2024 10:34 AM CDT Malignant neoplasm of bladder, unspecified (HC) BASIC METABOLIC PANEL Routine 10/20/2024 10:34 AM CDT Malignant neoplasm of bladder, unspecified (HC) CBC W PLT NO DIFF Routine 10/20/2024 10: 34 AM CDT Malignant neoplasm of bladder, unspecified (HC) PATH URINE CYTOLOGY Routine 10/20/2024 1 0:27 AM CDT Malignant neoplasm of bladder, unspecified (HC) CT ABDOMEN PELVIS UROGRAM WWO Routine 10/20/2024 10:03 AM CDT Malignant neoplasm of urinary bladder, unspecified site (HC) CT CHEST W Routine 10/20/2024 10:02 AM CDT Malignant neoplasm of urinary bladder, unspecified site (HC) IRON PLUS IRON BINDING CAP Today 09/16/2024 8:29 AM FAMILY ASSESSMENT WORKER Malignant neoplasm of urinary bladder, unspecified site (HC) [C67.9] FERRITIN Today 09/16/2024 8:29 AM FAMILY ASSESSMENT WORKER Malignant neoplasm of urinary bladder, unspecified site (HC) [C67.9] CBC WITH AUTO DIFFERENTIAL Timed 09/16/2024 8:29 AM FAMILY ASSESSMENT WORKER Malignant neoplasm of urinary bladder, unspecified site (HC) Primary prostate adenocarcinoma (HC) Neuroendocrine neoplasm of appendix (HC) COMP METABOLIC PANEL Today 09/16/2024 8:29 AM FAMILY ASSESSMENT WORKER Malignant neoplasm of urinary bladder, unspecified site (HC) Primary prostate adenocarcinoma (HC) Neuroendocrine neoplasm of appendix (HC) CBC WITH AUTO DIFFERENTIAL Today 09/16/2024 8:29 AM FAMILY ASSESSMENT WORKER Malignant neoplasm of urinary bladder, unspecified site (HC) Primary prostate adenocarcinoma (HC) Neuroendocrine neoplasm of appendix (HC) from Last 3 Months Results * CTA HEAD AND NECK CAROTID (10/24/2024 5:50 PM CDT) Anatomical Region Laterality Modality BRAIN, NECK Computed Tomogra phy 10/24/2024 6:06 PM CDT Addenda Addendum by Hans Huynh MD on 10/25/2024 10:32 AM CDT For Patients: As a result of the Cures Act, medical imaging exams and procedure reports are released immediately into your electronic medical record. You may view this report before your referring provider. If you have questions, please contact your health care provider. INDICATION: Acute stroke. TECHNIQUE: CTA head with contrast bolus tracking, 3D angiographic rendering using maximum intensity projection (MIP) and images permanently archived. FINDINGS: There is scattered intracranial atherosclerotic disease. There is normal opacification of the intracranial vasculature. There is no large vessel occlusion. No aneurysm is identified. IMPRESSION: No large vessel occlusion. Please note that all CT scans at this facility use dose modulation, iterative reconstruction, and/or weight-based dosing when appropriate to reduce radiation dose to as low as reasonably achievable. Dictated by Hans Huynh MD @ 10/25/2024 10:32:22 AM (Electronically Signed) Impressions 10/25/2024 10:31 AM CDT 1. Bilateral carotid atherosclerosis with a mild stenosis of the right ICA origin, less than 50 percent by NASCET. 2. Spiculated right lung mass, incompletely visualized, better described on recent chest CT of 10/20/2024. Please note that all CT scans at this facility use dose modulation, iterative reconstruction, and/or weight-based dosing when appropriate to reduce radiation dose to as low as reasonably achievable. Dictated by Hans Huynh MD @ 10/25/2024 10:31:04 AM (Electronically Signed) Narrative 10/25/2024 10:31 AM CDT For Patients: As a result of the Cures Act, medical imaging exams and procedure reports are released immediately into your electronic medical record. You may view this report before your referring provider. If you have questions, please contact your health care provider. INDICATION: Acute stroke. TECHNIQUE: CTA neck with contrast bolus tracking, 3D angiographic rendering using maximum intensity projection (MIP) and images permanently archived. FINDINGS: There is carotid atherosclerosis bilaterally. There is a mild stenosis of the right ICA origin, less than 50 percent by NASCET. There is no significant vertebral artery stenosis or dissection. The soft tissues of the neck are within normal limits. The cervical spine is in normal alignment. Degenerative changes are noted in the cervical spine. Emphysematous changes are present in the visualized lung apices. There is a spiculated mass in the right lung, incompletely visualized. Procedure Note Hans Huynh MD - 10/25/2024 For Patients: As a result of the Century Cures Act, medical imagingexams and procedure reports are released immediately into your electronicmedical record. You may view this report before your referring provider.If you have questions, please contact your health care provider. INDICATION: Acute stroke. TECHNIQUE: CTA neck with contrast bolus tracking, 3D angiographic rendering usingmaximum intensity projection (MIP) and images permanently archived. FINDINGS: There is carotid atherosclerosis bilaterally. There is a mild stenosis ofthe right ICA origin, less than 50 percent by NASCET. There is no significant vertebral artery stenosis or dissection. The soft tissues of the neck are within normal limits. The cervical spine is in normal alignment. Degenerative changes are noted in the cervical spine. Emphysematous changes are present in the visualized lung apices. There is a spiculated mass in the right lung, incompletely visualized. IMPRESSION: 1. Bilateral carotid atherosclerosis with a mild stenosis of the right ICAorigin, less than 50 percent by NASCET. 2. Spiculated right lung mass, incompletely visualized, better describedon recent chest CT of 10/20/2024. Please note that all CT scans at this facility use dose modulation,iterative reconstruction, and/or weight-based dosing when appropriate toreduce radiation dose to as low as reasonably achievable. Dictated by Hans Huynh MD @ 10/25/2024 10:31:04 AM (Electronically Signed) Anjelica ANTOINE CT Edited Result - Final * CT HEAD BRAIN WO (10/24/2024 5:50 PM CDT) Anatomical Region Laterality Modality HEAD, BRAIN Computed Tomogra phy 10/24/2024 6:02 PM CDT Impressions 10/24/2024 6:02 PM CDT 1. No CT evidence of acute intracranial abnormality. 2. Mild generalized cerebral volume loss and moderate chronic microangiopathy changes. Please note that all CT scans at this facility use dose modulation, iterative reconstruction, and/or weight-based dosing when appropriate to reduce radiation dose to as low as reasonably achievable. Dictated by Sara Garcia MD @ 10/24/2024 6:02:34 PM (Electronically Signed) Narrative 10/24/2024 6:02 PM CDT For Patients: As a result of the Cures Act, medical imaging exams and procedure reports are released immediately into your electronic medical record. You may view this report before your referring provider. If you have questions, please contact your health care provider. INDICATION: Neuro deficit, acute stroke suspected. Tingling in left triceps. TECHNIQUE: Noncontrast axial CT of the head. Coronal and sagittal reformats. Bone and soft tissue algorithms. COMPARISON: None. FINDINGS: Mild generalized cerebral volume loss, somewhat more pronounced within the bilateral anterior temporal lobes. Patchy hypoattenuation throughout the cerebral white matter typical of chronic microangiopathy. Preserved chapman-white matter differentiation. No acute intracranial hemorrhage or abnormal extra-axial fluid collection. Calcific intracranial atherosclerotic plaquing. Intact calvarium. Clear visualized paranasal sinuses and mastoid air cells. Unremarkable orbits. Procedure Note Sara Garcia, DO - 10/24/2024 For Patients: As a result of the Cures Act, medical imagingexams and procedure reports are released immediately into your electronicmedical record. You may view this report before your referring provider.If you have questions, please contact your health care provider. INDICATION: Neuro deficit, acute stroke suspected. Tingling in left triceps. TECHNIQUE: Noncontrast axial CT of the head. Coronal and sagittal reformats. Bone andsoft tissue algorithms. COMPARISON: None. FINDINGS: Mild generalized cerebral volume loss, somewhat more pronounced withinthe bilateral anterior temporal lobes. Patchy hypoattenuation throughoutthe cerebral white matter typical of chronic microangiopathy. Preservedgray-white matter differentiation. No acute intracranial hemorrhage orabnormal extra-axial fluid collection. Calcific intracranialatherosclerotic plaquing. Intact calvarium. Clear visualized paranasalsinuses and mastoid air cells. Unremarkable orbits. IMPRESSION: 1. No CT evidence of acute intracranial abnormality. 2. Mild generalized cerebral volume loss and moderate chronicmicroangiopathy changes. Please note that all CT scans at this facility use dose modulation,iterative reconstruction, and/or weight-based dosing when appropriate toreduce radiation dose to as low as reasonably achievable. Dictated by Sara Garcia MD @ 10/24/2024 6:02:34 PM (Electronically Signed) Anjelica ANTOINE CT Final R esult * (ABNORMAL) CBC WITH AUTO DIFFERENTIAL (10/24/2024 4:59 PM CDT) Only the most recent of2 resultswithin the time period is included. WHITE BLOOD COUNT 4.4(L) 4.5 - 11.0 thou/cu mm 10/24/2024 5:07 PM [facility] RED BLOOD COUNT 4.30 4.30 - 5.90 mil/cu mm 10/24/2024 5:07 PM [facility] HEMOGLOBIN 11.6(L) 13.5 - 17.5 g/dL 10/24/2024 5:07 PM [facility] HEMATOCRIT 36.5(L) 37.0 - 53.0 % 10/24/2024 5:07 PM [facility] MCV 85 80 - 100 fL 10/24/2024 5:07 PM [facility] MCH 27.0 26.0 - 34.0 pg 10/24/2024 5:07 PM [facility] MCHC 31.8(L) 32.0 - 36.0 g/dL 10/24/2024 5:07 PM [facility] RDW 19.5(H) 11.5 - 15.5 % 10/24/2024 5:07 PM [facility] PLATELET COUNT 223 140 - 440 thou/cu mm 10/24/2024 5:07 PM [facility] MPV 9.9 6.5 - 11.0 fL 10/24/2024 5:07 PM [facility] % NEUT 69.8 % 10/24/2024 5:07 PM [facility] % LYMPH 17.6 % 10/24/2024 5:07 PM [facility] % MONO 10.1 % 10/24/2024 5:07 PM [facility] % EOS 1.4 % 10/24/2024 5:07 PM [facility] % BASO 1.1 % 10/24/2024 5:07 PM [facility] ABSOLUTE NEUTROPHILS 3.1 1.7 - 7.0 thou/cu mm 10/24/2024 5:07 PM [facility] ABSOLUTE LYMPHOCYTES 0.8(L) 0.9 - 2.9 thou/cu mm 10/24/2024 5:07 PM [facility] ABSOLUTE MONOCYTES 0.5 <0.9 thou/cu mm 10/24/2024 5:07 PM [facility] ABSOLUTE EOSINOPHILS 0.1 <0.5 thou/cu mm 10/24/2024 5:07 PM T [facility] ABSOLUTE BASOPHILS 0.1 <0.3 thou/cu mm 10/24/2024 5:07 PM T [facility] Blood BLOOD SPECIMEN / Unknown Venipuncture / Unknown 10/24/2024 4:59 PM CDT 10/24/2024 5:02 PM CDT Anjelica ANTOINE HEMATOLOGY Final R esult [facility] [address] [place] [address] * MAGNESIUM (10/24/2024 4:59 PM CDT) MAGNESIUM 1.8 1.6 - 2.4 mg/dL 10/24/2024 5:22 PM CDT [facility] Blood BLOOD SPECIMEN / Unknown Venipuncture / Unknown 10/24/2024 4:59 PM CDT 10/24/2024 5:02 PM CDT us Anjelica ANTOINE CHEMISTRY Final R esult [facility] [address] [facility] [place] [address] * (ABNORMAL) BASIC METABOLIC PANEL (10/24/2024 4:59 PM CDT) Only the most recent of2 resultswithin the time period is included. SODIUM 134(L) 136 - 145 mmol/L 10/24/2024 5:22 PM [facility] POTASSIUM 4.1 3.5 - 5.1 mmol/L 10/24/2024 5:22 PM [facility] CHLORIDE 101 98 - 107 mmol/L 10/24/2024 5:22 PM [facility] CO2,TOTAL 24 22 - 29 mmol/L 10/24/2024 5:22 PM [facility] ANION GAP 9 5 - 18 10/24/2024 5:22 PM [facility] GLUCOSE 130(H) 70 - 99 mg/dL 10/24/2024 5:22 PM [facility] CALCIUM 9.4 8.8 - 10.4 mg/dL 10/24/2024 5:22 PM [facility] Comment: Reference ranges for this test were updated on 06/03/2024 to reflect our healthy population more accurately. Reference range changes are not retroactively applied to results, but previous results using the same methodology can be interpreted in the context of the new reference range. BUN 18 8 - 23 mg/dL 10/24/2024 5:22 PM [facility] CREATININE 0.90 0.70 - 1.20 mg/dL 10/24/2024 5:22 PM [facility] BUN/CREAT RATIO 20 10 - 20 5:22 PM [facility] eGFR 86(L) >90 mL/min/1. 73m2 10/24/2024 5:22 PM [facility] Comment:As of 2021, eG FR is calculated by the CKD-EPI creatinine equation without race adjustment. eGFR can be influenced by muscle mass, exercise, and diet. The reported eGFR is an estimation only and is only applicable if the renal function is stable. Blood BLOOD SPECIMEN / Unknown Venipuncture / Unknown 10/24/2024 4:59 PM CDT 10/24/2024 5:02 PM CDT Anjelica ANTOINE CHEMISTRY Final R esult Performing Organization Address City/[facility]/ZIP Co de Phone Number [facility] [address] [place] [address] * LAB TRACKING EVENT (10/20/2024 10:34 AM CDT) Other (Other) Non-Blood / Unknown 10/20/2024 10:34 AM CDT 10/20/2024 10:36 AM CDT Keegan Moralez MD LAB BILL ONLY Fi nal Result Performing Organization Address [facility] Co de Phone Number [facility] [address] [place] [address], [place] * (ABNORMAL) CBC W PLT NO DIFF (10/20/2024 10:34 AM CDT) WHITE BLOOD COUNT 4.8 4.5 - 11.0 thou/cu mm 10/20/2024 10:47 AM T [facility] RED BLOOD COUNT 4.61 4.30 - 5.90 mil/cu mm 10/20/2024 10:47 AM T [facility] HEMOGLOBIN 12.4(L) 13.5 - 17.5 g/dL 10/20/2024 10:47 AM [facility] HEMATOCRIT 39.7 37.0 - 53.0 % 10/20/2024 10:47 AM [facility] MCV 86 80 - 100 fL 10/20/2024 10:47 AM T [facility] MCH 26.9 26.0 - 34.0 pg 10/20/2024 10:47 AM [facility] MCHC 31.2(L) 32.0 - 36.0 g/dL 10/20/2024 10:47 AM CDT [facility] RDW 20.4(H) 11.5 - 15.5 % 10/20/2024 10:47 AM CDT [facility] PLATELET COUNT 222 140 - 440 thou/cu mm 10/20/2024 10:47 AM CDT [facility] MPV 9.8 6.5 - 11.0 fL 10/20/2024 10:47 AM CDT [facility] Blood BLOOD SPECIMEN / Unknown Venipuncture / Unknown 10/20/2024 10:34 AM CDT 10/20/2024 10:36 AM CDT Keegan Moralez MD HEMATOLOGY Fi nal Result Performing Organization Address City/[facility]/ZIP Co de Phone Number [facility] [address] [place] [address] * PSA TOTAL (10/20/2024 10:34 AM CDT) PSA TOTAL <0.02 <4.00 ng/mL 10/20/2024 11:19 PM CDT [facility] Blood BLOOD SPECIMEN / Unknown Venipuncture / Unknown 10/20/2024 10:34 AM CDT 10/20/2024 10:36 AM CDT Narrative [facility] - 10/20/2024 11:19 PM CDT The test method changed on 01/23/2023. If this test has been used for serial monitoring, rebaselining is recommended. Rebaselining consists of 2 measurements, collected 3-6 weeks apart. The [employer] Ele[employer]ys total PSA assay is an electrochemiluminescence immunoassay ECLIA performed on the Ranjana Kristopher e immunoassay analyzers. Values obtained with different assay methods may be different and cannot be used interchangeably. Keegan Moralez MD CHEMISTRY Fi nal Result Performing Organization Address City/[facility]/ZIP Co de Phone Number [facility] [address] [address], [place] * VITAMIN B12 (10/20/2024 10:34 AM CDT) VITAMIN B12 470 232 - 1,245 pg/mL 10/20/2024 11:14 PM CDT [facility] Blood BLOOD SPECIMEN / Unknown Venipuncture / Unknown 10/20/2024 10:34 AM CDT 10/20/2024 10:36 AM CDT Narrative [facility] - 10/20/2024 11:14 PM CDT Biotin supplements may cause clinically significant interference for this test assay. If interference is suspected, it is strongly recommended that biotin is discontinued for at least one week prior to retesting. Keegan Moralez MD CHEMISTRY Fi nal Result [facility] [address] [address], [place] * PATH URINE CYTOLOGY (10/20/2024 10:27 AM CDT) Case Report Medical Cytology Report Case: [id number] Authorizing Provider: Keegan Moralez Collected: 10/20/2024 102Scarlet Wang MD Ordering Location: [facility] Received: 10/21/[address] [place] [address] Pathologist: Maureen Camp DO Specimen: Urine 10/21/2024 3:[address] [facility] Final Diagnosis A) URINE, CYTOLOGY: 1. Negative for high grade urothelial carcinoma 2. Cytologic changes consistent with urinary diversion 3. Scant cellularity 10/21/2024 3:[address] [facility] at 1515 CDT Comment A) According to the Brandi System of reporting urinary cytology, the diagnosis of negative for high-grade urothelial carcinoma indicates the sample is composed of benign urothelial cells and that cells of high-grade urothelial carcinoma are absent. This does not exclude benign and low-grade urothelial neoplasia. 10/21/2024 3:[address] 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 Gross Description A) SOURCE: Urine The specimen consists of 115 cc of gold cloudy fluid from which the following is prepared: -1 Papanicolaou stained ThinPrep slide 10/21/2024 3:[address] [facility] Microscopic Description Specimen adequacy: Adequate for interpretation. All slides were reviewed. The microscopic appearance substantiates the diagnosis. All slides were reviewed microscopically. Specimen adequacy: Adequate for interpretation. The microscopic appearance substantiates the diagnosis. 10/21/2024 3:[address] [facility] Additional Information Cytology is screened at [facility] - [address], [place] [address] and [facility] - [address] [place] [address] and [facility] - [address] [place] [address] Interpreted at [facility] - [address], [place] [address] 10/21/2024 3:16 PM CDT [facility] Urine URINE SPECIMEN / Unknown 10/20/2024 10:27 AM CDT 10/21/2024 9:50 AM CDT Keegan Moralez MD PATHOLOGY/CYTOLOGY Final Result [facility] [address] [place] [address], [place] * CT ABDOMEN PELVIS UROGRAM WWO (10/20/2024 10:03 AM CDT) Anatomical Region Laterality Modality Abdomen, Pelvis, KIDNEYS, BLADDER Computed Tomography 10/20/2024 1:20 PM CDT Impressions 10/20/2024 1:20 PM CDT 1. Prior cystectomy with urinary diversion without change from the previous or evidence for complication. 2. Bilateral renal cysts. Also single nonobstructing calculi on the noncontrast images, not readily visualized on the previous studies which were done with contrast. 3. No evidence of metastatic disease in the abdomen or pelvis. Please note that all CT scans at this facility use dose modulation, iterative reconstruction, and/or weight-based dosing when appropriate to reduce radiation dose to as low as reasonably achievable. Dictated by Reyna Story MD @ 10/20/2024 1:20:55 PM (Electronically Signed) Narrative 10/20/2024 1:20 PM CDT For Patients: As a result of the Cures Act, medical imaging exams and procedure reports are released immediately into your electronic medical record. You may view this report before your referring provider. If you have questions, please contact your health care provider. INDICATION: Malignant neoplasm of the urinary bladder TECHNIQUE: CT abdomen and pelvis urogram without and with IV contrast. Contrast images were obtained in the nephrographic and delayed phases. COMPARISON: : 03/13/2024 FINDINGS: Lower chest: See chest CT. Liver: Unremarkable. Spleen: Unremarkable. Pancreas: Unremarkable. Gallbladder and bile ducts: Unremarkable. Kidneys: Minute nonobstructing calculi inferior left kidney (4/95) and right kidney (4/87). The 2 densities at the ureteric ileo anastomosis (4/116 and 111) have been present on multiple previous studies and likely are Surgical clips rather than urinary tract calculi. Small hypodensities in both kidneys typical of cysts are unchanged. No suspicious masses. No dilation of the collecting system on the precontrast images. Following administration of contrast there is left pyelo caliectasis and moderate dilation of the right renal pelvis and ureter. These findings are similar to prior contrast-enhanced images. Diversion ileal conduit/ostomy similar to the previous without evidence for complication. Adrenal glands: Unremarkable. GI tract: No bowel obstruction or inflammation. Vascular structures: Heavily calcified aorta and iliac vessels. 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 Lymph nodes: No lymphadenopathy. Miscellaneous: Unremarkable. No free air or significant free fluid. Pelvic Organs: Cystectomy. Stable pelvic postoperative changes. Bones: Degenerative spine. No lytic or osteoblastic lesions. Procedure Note James Story MD - 10/20/2024 For Patients: As a result of the Century Cures Act, medical imagingexams and procedure reports are released immediately into your electronicmedical record. You may view this report before your referring provider.If you have questions, please contact your health care provider. INDICATION: Malignant neoplasm of the urinary bladder TECHNIQUE: CT abdomen and pelvis urogram without and with IV contrast. Contrastimages were obtained in the nephrographic and delayed phases. COMPARISON: : 03/13/2024 FINDINGS: Lower chest: See chest CT. Liver: Unremarkable. Spleen: Unremarkable. Pancreas: Unremarkable. Gallbladder and bile ducts: Unremarkable. Kidneys: Minute nonobstructing calculi inferior left kidney (4/95) andright kidney (4/87). The 2 densities at the ureteric ileo anastomosis(4/116 and 111) have been present on multiple previous studies and likelyare Surgical clips rather than urinary tract calculi. Small hypodensities in both kidneys typical of cysts are unchanged. Nosuspicious masses. No dilation of the collecting system on the precontrastimages. Following administration of contrast there is left pyelocaliectasis and moderate dilation of the right renal pelvis and ureter.These findings are similar to prior contrast-enhanced images. Diversionileal conduit/ostomy similar to the previous without evidence forcomplication. Adrenal glands: Unremarkable. GI tract: No bowel obstruction or inflammation. Vascular structures: Heavily calcified aorta and iliac vessels. Mildaneurysmal dilation of the distal aorta and right common iliac artery. Lymph nodes: No lymphadenopathy. Miscellaneous: Unremarkable. No free air or significant free fluid. Pelvic Organs: Cystectomy. Stable pelvic postoperative changes. Bones: Degenerative spine. No lytic or osteoblastic lesions. IMPRESSION: 1. Prior cystectomy with urinary diversion without change from theprevious or evidence for complication. 2. Bilateral renal cysts. Also single nonobstructing calculi on thenoncontrast images, not readily visualized on the previous studies whichwere done with contrast. 3. No evidence of metastatic disease in the abdomen or pelvis. Please note that all CT scans at this facility use dose modulation,iterative reconstruction, and/or weight-based dosing when appropriate toreduce radiation dose to as low as reasonably achievable. Dictated by Reyna Story MD @ 10/20/2024 1:20:55 PM (Electronically Signed) us Keegan Moralez MD CT Fi nal Result * CT CHEST W (10/20/2024 10:02 AM CDT) Anatomical Region Laterality Modality CHEST, THORAX, HEART Computed To mography 10/20/2024 11:0 9 AM CDT Impressions 10/20/2024 11:09 AM CDT 1. New 2 cm spiculated density with an additional linear component in the right upper lobe abuts and retracts the minor fissure. No associated bronchiectasis. While this may be an infectious process, a metastatic lesions not excluded. 2. No other new suspicious lesions. Chronic bronchiectasis and subpleural scarring in both lower lobes. 3. No lymphadenopathy or pleural effusion. Please note that all CT scans at this facility use dose modulation, iterative reconstruction, and/or weight-based dosing when appropriate to reduce radiation dose to as low as reasonably achievable. Dictated by Reyna Story MD @ 10/20/2024 11:09:22 AM (Electronically Signed) Narrative 10/20/2024 11:09 AM CDT For Patients: As a result of the Century Cures Act, medical imaging exams and procedure reports are released immediately into your electronic medical record. You may view this report before your referring provider. If you have questions, please contact your health care provider. INDICATION: Malignant neoplasm of the urinary bladder TECHNIQUE: CT chest with IV contrast. COMPARISON: 03/13/2024 FINDINGS: Cardiovascular structures: Normal vascular enhancement of the pulmonary arteries, no sign of pulmonary embolism. Heart size is normal. No sign of aneurysm or dissection in the thoracic aorta. Atherosclerotic calcification of the coronary arteries and thoracic aorta. Mediastinum and elaine: No mass or adenopathy. Thyroid normal. Lungs: Chronic upper lobe emphysema. Severe chronic lower lobe emphysema with asymmetrical subpleural scarring similar to the previous. New spiculated 2.0 cm density with an adjacent 2.5 cm linear component abutting and slightly retracting the minor fissure (5/85 and 7173). No associated bronchiectasis to this new density and therefore this has the potential for a metastatic lesion. Pleura and pericardium: No effusions. Chest wall and axilla: No mass or adenopathy. Bones: No significant findings. Upper abdomen: Unremarkable. Procedure Note James Story MD - 10/20/2024 For Patients: As a result of the Century Cures Act, medical imagingexams and procedure reports are released immediately into your electronicmedical record. You may view this report before your referring provider.If you have questions, please contact your health care provider. INDICATION: Malignant neoplasm of the urinary bladder TECHNIQUE: CT chest with IV contrast. COMPARISON: 03/13/2024 FINDINGS: Cardiovascular structures: Normal vascular enhancement of the pulmonaryarteries, no sign of pulmonary embolism. Heart size is normal. No sign ofaneurysm or dissection in the thoracic aorta. Atheroscleroticcalcification of the coronary arteries and thoracic aorta. Mediastinum and elaine: No mass or adenopathy. Thyroid normal. Lungs: Chronic upper lobe emphysema. Severe chronic lower lobe emphysemawith asymmetrical subpleural scarring similar to the previous. New spiculated 2.0 cm density with an adjacent 2.5 cm linear componentabutting and slightly retracting the minor fissure (5/85 and 7/173). Noassociated bronchiectasis to this new density and therefore this has thepotential for a metastatic lesion. Pleura and pericardium: No effusions. Chest wall and axilla: No mass or adenopathy. Bones: No significant findings. Upper abdomen: Unremarkable. IMPRESSION: 1. New 2 cm spiculated density with an additional linear component in theright upper lobe abuts and retracts the minor fissure. No associatedbronchiectasis. While this may be an infectious process, a metastaticlesions not excluded. 2. No other new suspicious lesions. Chronic bronchiectasis and subpleuralscarring in both lower lobes. 3. No lymphadenopathy or pleural effusion. Please note that all CT scans at this facility use dose modulation,iterative reconstruction, and/or weight-based dosing when appropriate toreduce radiation dose to as low as reasonably achievable. Dictated by Reyna Story MD @ 10/20/2024 11:09:22 AM (Electronically Signed) us Keegan Moralez MD CT Fi nal Result * (ABNORMAL) IRON PLUS IRON BINDING CAP (09/16/2024 8:29 AM FAMILY ASSESSMENT WORKER) IRON 31(L) 61 - 157 ug/dL 09/18/2024 4:50 PM FAMILY ASSESSMENT WORKER [facility] UIBC (UNSATURATED) 353(H) 112 - 347 ug/dL 09/18/2024 4:50 PM FAMILY ASSESSMENT WORKER [facility] IRON BINDING CAPACITY 384 250 - 400 ug/dL 09/18/2024 4:50 PM FAMILY ASSESSMENT WORKER [facility] IRON,% SATURATION 8(L) 14 - 50 % 09/18/2024 4:50 PM FAMILY ASSESSMENT WORKER [facility] Blood BLOOD SPECIMEN / Unknown Venipuncture / Unknown 09/16/2024 8:29 AM FAMILY ASSESSMENT WORKER 09/16/2024 8:29 AM FAMILY ASSESSMENT WORKER Irais Jung MD CHEMISTRY Final Resu lt Performing Organization Address City/[facility]/ZIP Co de Phone Number [facility] [address] [address], [place] * (ABNORMAL) FERRITIN (09/16/2024 8:29 AM FAMILY ASSESSMENT WORKER) FERRITIN 18.4(L) 30.0 - 400.0 ng/mL 09/18/2024 4:46 PM FAMILY ASSESSMENT WORKER [facility] Blood BLOOD SPECIMEN / Unknown Venipuncture / Unknown 09/16/2024 8:29 AM FAMILY ASSESSMENT WORKER 09/16/2024 8:29 AM FAMILY ASSESSMENT WORKER us Irais Jung MD CHEMISTRY Final Resu lt [facility] [address] [place] [address], [place] * (ABNORMAL) COMP METABOLIC PANEL (09/16/2024 8:29 AM FAMILY ASSESSMENT WORKER) SODIUM 138 136 - 145 mmol/L 09/16/2024 8:55 AM FAMILY ASSESSMENT WORKER [facility] POTASSIUM 4.2 3.5 - 5.1 mmol/L 09/16/2024 8:55 AM FAMILY ASSESSMENT WORKER [facility] CHLORIDE 102 98 - 107 mmol/L 09/16/2024 8:55 AM [facility] CO2,TOTAL 28 22 - 29 mmol/L 09/16/2024 8:55 AM [facility] ANION GAP 8 5 - 18 09/16/2024 8:55 AM [facility] GLUCOSE 89 70 - 99 mg/dL 09/16/2024 8:55 AM [facility] CALCIUM 9.9 8.8 - 10.4 mg/dL 09/16/2024 8:55 AM [facility] Comment: Reference ranges for this test were updated on 06/03/2024 to reflect our healthy population more accurately. Reference range changes are not retroactively applied to results, but previous results using the same methodology can be interpreted in the context of the new reference range. BUN 20 8 - 23 mg/dL 09/16/2024 8:55 AM [facility] CREATININE 0.80 0.70 - 1.20 mg/dL 09/16/2024 8:55 AM [facility] BUN/CREAT RATIO 25(H) 10 - 20 8:55 AM [facility] eGFR 89(L) >90 mL/min/1.7 3m2 09/16/2024 8:55 AM [facility] Comment:As of 2021, eG FR is calculated by the CKD-EPI creatinine equation without race adjustment. eGFR can be influenced by muscle mass, exercise, and diet. The reported eGFR is an estimation only and is only applicable if the renal function is stable. ALBUMIN 4.2 4.0 - 4.9 g/dL 09/16/2024 8:55 AM [facility] PROTEIN,TOTAL 7.0 6.0 - 8.0 g/dL 09/16/2024 8:55 AM [facility] BILIRUBIN,TOTAL 0.5 0.0 - 1.2 mg/dL 09/16/2024 8:55 AM [facility] ALK PHOSPHATASE 102 40 - 129 IU/L 09/16/2024 8:55 AM [facility] ALT (SGPT) 10 10 - 50 IU/L 09/16/2024 8:55 AM FAMILY ASSESSMENT WORKER [facility] AST (SGOT) 19 10 - 50 IU/L 09/16/2024 8:55 AM FAMILY ASSESSMENT WORKER [facility] Blood BLOOD SPECIMEN / Unknown Venipuncture / Unknown 09/16/2024 8:29 AM FAMILY ASSESSMENT WORKER 09/16/2024 8:29 AM FAMILY ASSESSMENT WORKER Maria Guadalupe Dumont NP CHEMISTRY Final Result [facility] [address] [place] [phone] from Last 3 Months Insurance [id number] [id number] MEDICARE PART A HB ONLY MEDICARE ADVANTAGE 1992 [id number] [place] [id number] MEDICARE PART A HB ONLY MEDICARE PART B HB ONLY MR [facility] Advance Directives * Full Code (Latest Code Status on File) Date Activated Date Inactivated Comments 12/05/2022 11:31 AM 12/06/2022 3:49 PM Question Answer Comments Code Status Discussion: Unable to Assess Preferences, Provider to review later * Full Code Date Activated Date Inactivated Comments 10/04/2021 7:44 AM 10/12/2021 4:47 PM Question Answer Comments Code Status Discussion: Unable to Assess Preferences, Provider to review later * Full Code Date Activated Date Inactivated Comments 08/30/2021 12:09 PM 08/31/2021 3:10 PM Question Answer Comments Code Status Discussion: Not Discussed * Full Code Date Activated Date Inactivated Comments 08/06/2013 1:26 AM 08/07/2013 1:06 PM Care Teams 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 Relationship Specialty Start Date End Date Tomas Weathers MD [address] [facility] [place] [address] PCP - General Family Practice 10/15/17 Silvano Coyne MD [address] [place] [id number] Internal Medicine 10/02/11 Keegan Moralez MD [address] [place] [address] Surgery - Urology 09/13/21 Irais Jung MD [address] [place] [address] Oncology 10/31/21 Maria Guadalupe Dumont NP [address] [place] [address] Oncology 10/31/21 Funmi Caro, RN, BSN [address] [address] Nurse Navigator - Oncology Registered Nurse 03/24/24
--- OUTSIDE RECORDS SUMMARY | 2024-11-02 15:57 | XMS_ITS | Data Portability ---
Author Organization [facility], [facility] Address [address] [place] [address] Care Team Providers Care Education Paraprofessional Name Role Phone IZZY JOHANSEN Primary Care Provider [phone] Assessment Encounter Date Assessment Date Assessment LastModified by Organization Details LastModified Time 10/26/2023 10/26/2023 78M s/p RC/IC on 10/04/21 for pT1N0 bladder cancer (-SMS, -LVI, 0/ LN) and incidental pT2N0 [place] 3+4=7 prostate cancer (-SMS, -SVI, -LVI, 0/ LN). 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 We reviewed there are multiple etiologies for hematuria post-cystectomy, ileal conduit. We discussed obtaining urine cytology and CT A/P with contrast. Cytology will be sent today. Last imaging was from September with no identifiable cause for gross hematuria; has routine surveillance imaging scheduled next month. They were concerned by the amount of bacteria that grew on recent culture from PCP office. We reviewed that urine samples for UA/UC should be obtained directly from the stoma with a catheter for patients with an ileal conduit; urine specimen should not be taken directly from ostomy appliance due to high likelihood of contamination. 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 1) Bladder cancer - with Gross Hematuria - send cytology today - complete CT C/A/P with contrast as scheduled for cancer surveillance and for hematuria work-up - f/u with Dr. Moralez next month as scheduled 2) Prostate cancer - PSA with Dr. 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 Lab PSA, serum or plasma 2023 024 [email or web address], [address] [place], [address], 4 11:01:02 cytology, urine - Cytology only, Ileal Conduit 2023 024 [place] [facility], [address], [place], [address], 4 10:30:38 Referral thoracic surgeon referral - h/o bladder cancer, new 2 cm lung nodule 2024 025 ATHENAX Keegan Puentes MD, [facility] - [facility], [address] [facility] [address], [place], [address], 5 12:01:01 Procedures None recorded. Surgeries None [...] Abnormal Flag Note LastModifiedBy Organization Detail LastModifiedTime 10/26/19 24 10/26/2023 PSA, serum or plasm a PSA <0.04 ng/mL 0-4.0 Not Available [facility] [address], [place], [address], 10/26/2023 11:00:36 10/16/19 24 10/14/2023 CT, chest + abdom en + pelvi s, w/ contr ast No observ ation record ed. [email or web address] Not Available 10/25 11:00:22 03/15/20 24 03/13/2024 CT, chest + abdom en + pelvi s, w/ contr ast No observ ation record ed. VAN Newsomedennis Quinlan [address], [place], [address], 04/07/2024 21:10:49 10/21/19 25 10/20/2024 CT, chest + abdom en + pelvi s, w/ contr ast No observ ation record ed. michelle Newsomedennis [facility] [address] [place], [address], 10/22/2024 11:41:36 10/21/19 25 10/20/2024 CT, urogr am No observ ation record ed. [facility] [address] [place], [address], 10/22/2024 11:41:36 Result Notes None recorded. 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 5528567645729 00 Active 2017 Teresa Keatingloyd carlyle [facility] 4 13:38:39 Myocardial infarction 78333535 Active 2013 Teresapoli Keatingloyd carlyle, [facility] 4 13:38:39 Eruption 255263944 Active 2008 Teresa tadeo [facility] 4 13:38:39 Patient encounter status 362328915 Active 2009 Teresa Keatingloyd carlyle [facility] 4 13:38:39 Dyslipidemi a 058001592 Active 2010 Teresa Rishabhloyd carlyle [facility] 4 13:38:39 Hypertensiv e disorder 99289161 Active 2014 Teresa Keatingtommymaged tadeo [facility] 4 13:38:39 Coronary arterioscle rosis 32916070 Active 2013 Teresa Eddie tadeo [facility] 4 13:38:39 Rheumatoid arthritis 94993263 Active 2009 Teresa Keatingloyd carlyle [facility] 4 13:38:39 Typical atrial flutter 121952839 Active Teresapoli Keatingtommymaged tadeo [facility] 4 13:38:40 Pulmonary emphysema 50504508 Active 2014 Teresa Keatingloyd carlyle [facility] 4 13:38:40 Problem Notes None recorded. Procedures Surgical History Date Name Laterality Status Provider Name and Address Organization Details Recorded Time 10/23/19 25 COMPLEX VISIT completed Angella Stover [facility] 10/15/2024 10:40:26 04/23/20 24 COMPLEX VISIT completed Keegan odell MD, PHD [address] [place] [address],[address], [address], [facility] 04/23/2024 15:27:51 03/06/20 24 COMPLEX VISIT completed Emiliana Ellis PA-C [address] [place] [address],[address], [address], [facility] 03/06/2024 13:56:56 10/26/19 24 COMPLEX VISIT completed Keegna odell MD, PHD [address] [place] [address],[address], [place], [address], [facility] 10/26/2023 11:30:38 10/26/19 24 [employer]/blood draw [facility] 10/26/2023 10:52:25 11/17/19 23 Cystoscopy- male completed Keegan odell MD, PHD [address] [place] [address],[facility] [address], [address], [facility] 11/16/2022 09:48:08 10/20/19 23 Blood Draw/[employer] [place]/PSA RESULTS completed Keegan odell MD, PHD [address] [place] [address],[address] [place] [address], [address], [facility] 10/19/2022 10:57:18 10/05/19 22 complete cystectomy completed Shazia Baires [facility] 10/20/2021 11:39:47 08/01/19 22 TRANSURETHRAL RESECTION OF BLADDER TUMOR (SURG) completed Irina Gould [facility] 08/31/2021 16:31:21 05/12/20 21 Cystoscopy- male completed James Snyder MD [address] [place] [address],[address], [address], [facility] 05/12/2021 12:34:03 03/01/20 21 UroCuff completed Quintin Rincon [facility] 03/02/2021 12:01:51 03/01/20 21 Bladder Scan completed Quintin Rincon [facility] 03/02/2021 11:56:17 07/30/19 17 colonoscopy completed Angella Stover [facility] 09/14/2021 10:54:28 04/29/19 84 Cholecystectomy completed Stephie Dennis [facility] 05/10/2021 12:08:20 Imaging Results Imaging Date Name Status LastModified by Organiz ation Details LastModified Time 10/14/2023 CT, chest + abdomen + pelvis, w/ contrast completed [email or web address] Information not available 10/26/2023 11:00:22 03/13/2024 CT, chest + abdomen + pelvis, w/ contrast completed VAN Richards Quinlan [address], [place], [address], 04/07/2024 21:10:49 10/20/2024 CT, chest + abdomen + pelvis, w/ contrast completed [facility] [address] [place], [address], 10/22/2024 11:41:36 10/20/2024 CT, urogram completed [facility] [address] [place], [address], 10/22/2024 11:41:36 Procedure Notes None recorded. Medical Equipment None Reported. Medications Name Sig Start Date Stop Date Status Note LastModified by Organization Details LastModified Time lidoc/predn /kotlik/chelsy r/nysta SWISH, RINSE AND SPIT 15ML TO 30ML EVERY 4 HOURS NEEDED 10/19 completed Not Available Not Available Not Available nystat/qdry l/lido/pred /maal SHAKE WELL AND TAKE 15-30MLS BY MOUTH EVERY FOUR HOURS NEEDED. DO NOT SWALLOW. 10/19 completed Not Available Not Available Not Available lidoc/diphe /kotlik/pred n/nysta SWISH, RINSE AND SPIT 15-30 ML [...] and Address Organization Details Last Updated DateTime 10/26/2023 180.34 cm 26.5 kg/m2 23529.55 g Quintin Rincon [facility] 10/26/2023 10:52:00 Date Recorded Body height Body mass index (BMI) Body weight Provider Name and Address Organization Details Last Updated DateTime 03/06/2024 180.34 cm 26.5 kg/m2 13133.55 g Teresa Morgan [facility] 03/06/2024 14:00:21 Date Recorded Body height Body mass index (BMI) Body weight Provider Name and Address Organization Details Last Updated DateTime 04/23/2024 180.34 cm 26.5 kg/m2 39071.55 g Keegan miller MD, PHD [address] [place] [address] [place] [address] 04/23/2024 14:54:15 Date Recorded Body height Body mass index (BMI) Body weight Provider Name and Address Organization Details Last Updated DateTime 10/22/2024 180.34 cm 26.1 kg/m2 01051.77 g Keegan miller MD, PHD [address] [place] [address] 10/22/2024 11:27:36 Social History Question Answer Notes LastModified by Organizat ion Details LastModified Time Tobacco Smoking Status [facility] 12:08:01 What Is Your Level Of Alcohol Consumption? None Information not available 05/10/2021 Are You Currently Employed? No RETIRED Information not available 05/10/2021 When Did You Quit Smoking? 1-5yearssin celastcigar ette QUIT: 07/14/2017 Information not available 05/10/2021 Race WHITE Information no t available 05/10/2021 Ethnicity Not /La feli Information not available 05/10/2021 Preferred Language Bolivian Information not available 05/10/2021 Recreational Drug Use No Information not available 05/10/2021 Could You Be ? No Information not available 05/10/2021 What Was The Date Of Your Most Recent Tobacco Screening? 10/22/2024 michelle Information not available 10/22/2024 What Is Your Relationship Status? [place] Information not available 05/10/2021 Do You Use Any Illicit Or Recreational Drugs? No [place] Information not available 05/10/2021 How Many Years Have You Smoked Tobacco? 51.00 [place] Information not available 05/10/2021 Do You Or Have You Ever Used Any Other Forms Of Tobacco Or Nicotine? No Information not available 05/10/2021 Sex: Unknown Functional Status None recorded. Mental Status None recorded. Family History Relationship Description Onset Age of this Age Resolved Age Notes LastModified by Organization Details LastModified Time Mother Family history of diabetes mellitus Not available 05/10 12:12:25 Father Family history of cardiac disorder Not available 05/10 12:12:33 Medical History Condition Response Sexually Transmitted Infection N Diabetes N Bleeding Disorder N High Blood Pressure Y Kidney Stones N Cancer Y Lung Disease Y Depression N High Cholesterol N GERD/Acid Reflux N Heart Disease Y Immunizations Vaccine Type Date Status Note Provider Nam e and Address Organization Details Recorded Time Influenza, adjuvanted, trivalent, PF 9 completed Irina Leal null, [facility] 07/18/2023 17:39:16 Influenza, adjuvanted, trivalent, PF 7 completed Irina Luis Fernando null, [facility] 07/18/2023 17:39:16 Influenza, adjuvanted, trivalent, PF 8 completed [facility] 07/18/[facility] 17:39:16 Influenza, adjuvanted, quadrivalent, PF 0 completed Irina Leal null, [facility] 07/18/2023 17:39:16 Influenza, adjuvanted, quadrivalent, PF 1 completed Irina Leal null, [facility] 07/18/2023 17:39:16 Tdap 2 completed Irina Luis Fernando null, [facility] 07/18/2023 17:39:31 Tdap 9 completed Magali Teska null, [facility] 07/19/2023 14:47:35 Influenza, high-dose, trivalent, PF 6 completed Irina Leal null, [facility] 07/18/2023 17:39:16 Influenza, high-dose, trivalent, PF 5 completed Irina Leal null, [facility] 07/18/2023 17:39:16 Influenza, split virus, trivalent, preservative 3 completed Irina Luis Fernando null, [facility] 07/18/2023 17:39:32 Influenza, split virus, trivalent, preservative 1 completed Magali Teska null, [facility] 07/19/2023 14:47:35 Influenza, split virus, trivalent, preservative 3 completed Irina Luis Fernando null, [facility] 07/18/2023 17:39:32 Td (adult), 2 Lf tetanus toxoid, preservative free, adsorbed 9 completed Magali Teska null, [facility] 07/19/2023 14:49:08 Influenza, split virus, quadrivalent, PF 4 completed Irina Leal null, [facility] 07/18/2023 17:39:32 zoster recombinant 3 completed Magali Teska null, [facility] 07/19/2023 14:48:32 zoster recombinant 3 completed Magali Teska null, [facility] 07/19/2023 14:49:08 Influenza, adjuvanted, quadrivalent, PF 3 completed Magali Teska null, [facility] 07/19/2023 14:49:08 Influenza, adjuvanted, quadrivalent, PF 2 completed Magali Teska null, [facility] 07/19/2023 14:48:32 COVID-19, mRNA, LNP-S, PF, 30 mcg/0.3 mL dose, parminder-sucrose 2 completed Magali Teska null, [facility] 07/19/2023 14:47:35 COVID-19, mRNA, LNP-S, bivalent, PF, 30 mcg/0.3 mL dose 2 completed Magali tadeo, [facility] 07/19/2023 14:48:08 COVID-19, mRNA, LNP-S, PF, 50 mcg/0.5 mL 3 completed Not Available [facility] 10/22/2024 10:28:41 Influenza, adjuvanted, trivalent, PF 4 completed Not Available [facility] 10/22/2024 10:28:41 RSV, bivalent, protein subunit RSVpreF, diluent reconstituted, 0.5 mL, PF 4 completed Not Available [facility] 10/22/2024 10:28:41 COVID-19, mRNA, LNP-S, PF, 30 mcg/0.3 mL dose 1 completed Irina tadeo, [facility] 07/18/2023 17:39:31 COVID-19, mRNA, LNP-S, PF, 30 mcg/0.3 mL dose 1 completed Irina tadeo, [facility] 07/18/2023 17:39:31 COVID-19, mRNA, LNP-S, PF, 30 mcg/0.3 mL dose 1 completed Irina tadeo, [facility] 07/18/2023 17:39:31 Pneumococcal conjugate PCV 13 6 completed Irina tadeo, [facility] 07/18/2023 17:39:32 pneumococcal polysaccharide PPV23 9 completed Magali tadeo, [facility] 07/19/2023 14:47:35 Past Encounters Encounter ID Performer Location Encounter Start Date Encounter Closed Date Diagnosis/Indication Diagnosis SNOMED-CT Code Diagnosis ICD10 Code Diagnosis Note [id number] Quintin SALCEDO[facility] [address] [place] [address] 03/01/2021 10:40:27 03/02/2021 12:07:01 Prostate specific antigen above reference range 279091630 R97.20 [id number] James Snyder MD [address] [place] [address] 05/12/2021 11:42:48 05/16/2021 09:41:37 Lower urinary tract symptoms due to benign prostatic hypertrophy 7034818217 9101 N40.1 - UroCuff revealed Qmax 10.3, with decreased detrusor contractio n. - PVR today 6 ml - PSA: 2.99 ng/mL - Cystoscopy today revealed extensive papillary changes throughout the entire bladder - TRUS not performed today Malignant neoplasm of urinary bladder 386189925 C67.9 - Extensive papillary changes to bladder and prostatic fossa. Will set up for TURBT, we discussed the risks and benefits. We also discussed the role for pathologic diagnosis to determine what our next steps are for treatment. - I anticipate this is the reason for his recalcitra nt symptoms.; [id number] Keegan murry MD, PHD [address] [place] [address] 09/14/2021 10:33:06 09/19/2021 12:09:41 Malignant neoplasm of urinary bladder 900752730 C67.9 [id number] Emiliana Ellis PA-C [address] [place] [address] 10/20/2021 11:24:39 10/24/2021 10:00:21 Malignant tumor of prostate 244685548 C61 Malignant neoplasm of urinary bladder 253149036 C67.9 Neuroendoc rine carcinoma of appendix 159011849 C7A.8 Urostomy present 6943991 04 Z93.6 [id number] Keegan murry MD, PHD [address] [place] [address] 01/18/2022 13:56:29 01/19/2022 12:21:32 Malignant tumor of prostate 867775028 C61 Malignant neoplasm of urinary bladder 722357730 C67.9 Neuroendoc rine carcinoma of appendix 277118654 C7A.8 Urostomy present 8043379 04 Z93.6 [id number] Keegan murry MD, PHD [address] [place] [address] 04/28/2022 10:49:32 05/02/2022 14:53:11 Malignant neoplasm of urinary bladder 979063402 C67.9 Malignant tumor of prostate 719722346 C61 Neuroendoc rine carcinoma of appendix 208398094 C7A.8 Urostomy present 2239291 04 Z93.6 [id number] Keegan murry MD, PHD [address] [place] [address] 10/19/2022 10:26:30 10/24/2022 14:20:29 Malignant neoplasm of urinary bladder 130868177 C67.9 Malignant tumor of prostate 213790331 C61 Neuroendoc rine carcinoma of appendix 741690330 C7A.8 Urostomy present 9183591 04 Z93.6 [id number] Keegan murry MD, PHD [address] [place] [address] 11/16/2022 09:07:42 11/23/2022 11:31:22 Malignant neoplasm of urinary bladder 353837753 C67.9 Malignant tumor of prostate 209453392 C61 Neuroendoc rine carcinoma of appendix 189688535 C7A.8 Urostomy present 6564874 04 Z93.6 [id number] Emiliana Ellis PA-C [address] [place] [address] 12/27/2022 10:07:07 12/29/2022 16:49:25 Malignant neoplasm of urinary bladder 200272306 C67.9 Malignant tumor of prostate 531403883 C61 Urostomy present 0871703 04 Z93.6 [id number] Keegan murry MD, PHD [address] [place] [address] 04/19/2023 14:14:53 04/30/2023 07:42:33 Malignant neoplasm of urinary bladder 765132070 C67.9 Malignant tumor of prostate 774434254 C61 Urostomy present 1299486 04 Z93.6 [id number] Keegan murry MD, PHD [address] [place] [address] 10/26/2023 10:34:17 10/26/2023 15:29:52 Malignant neoplasm of urinary bladder 838746370 C67.9 Malignant tumor of prostate 308250300 C61 Urostomy present 0882627 04 Z93.6 [id number] Teresa Morgan [address] [place] [address] 03/06/2024 13:22:51 03/11/2024 13:34:30 Malignant neoplasm of urinary bladder 078159398 C67.9 Malignant tumor of prostate 171375854 C61 Urostomy present 4222487 04 Z93.6 [id number] Delores Real [address] [place] [address] 03/07/2024 13:35:36 03/13/2024 04:03:55 Malignant neoplasm of urinary bladder 711188271 C67.9 [id number] Keegan murry MD, PHD [address] [place] [address] 04/23/2024 14:42:11 04/24/2024 15:39:56 Malignant neoplasm of urinary bladder 738026329 C67.9 Malignant tumor of prostate 975919100 C61 Urostomy present 9248317 04 Z93.6 [id number] Keegan murry MD, PHD [address] [place] [address] 10/22/2024 10:26:27 10/27/2024 16:33:56 Malignant neoplasm of urinary bladder 214582142 C67.9 Malignant tumor of prostate 957643883 C61 Urostomy present 7446520 04 Z93.6 Health Concerns Section Related Observation LastModified by Organization Detai ls LastModified Time None Recorded Concern Status LastModified by Organization Details LastModified Time None Recorded Advance Directives Directive None Recorded Payers Encounter Date Sequence Insurance Name Policy Number Policy Bruner Covered Member ID Bruner Member ID Guarantor Name 10/26/2023 1 [employer]) Paul Barry [id number] Paul Barry 03/06/2024 1 [employer] Paul Barry [id number] Paul Barry 03/07/2024 1 [employer] Paul Barry [id number] Paul Barry 04/23/2024 1 [employer] Paul Barry [id number] Paul Barry 10/22/2024 1 [employer]) Paul Barry [id number] Paul Barry Notes Date Note Type Note Provider Name and Address Organization Details Recorded Time 10/26/2023 text/html 78M s/p RC/IC on 10/04/21 for pT1N0 bladder cancer (-SMS, -LVI, 0 LN) and incidental pT2N0 [place] 3+4=7 prostate cancer (-SMS, -SVI, -LVI, 0 LN). 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 Denies fever or chills. Changing stoma appliance q3-4 days. Had UTI 10/14/23- hematuria resolved with Abx. Concerned he still has fatigue and dyspnea from pneumonia. No fever. Imagin09/15/21 CT A/P: multi-focal bladder wall masses [...] no hydro, no evidence recurrence, + LLL pneumonia Labs:10/11/21 Cr 0.84, Hgb 10.83/ NITIN Cr 0.7612/16/21: Cr 1.09, Hgb 12.09; Cr 0.98, Hgb 13.5, PSA <0.033/: Cr 0.90, Hgb 13.1, cytol NEM9: Cr 0.94, Hgb 13.2, B12 482, cytol NEM3: Cr 0.98, Hgb 12.1, PSA Results10/19/22: <0.049/03/21: <0.023: <0.04 PMH: CAD s/p stent (>10 yrs ago), COPD, HL, RA (methotrexate)PSH: open choleSocHx: can walk a block, riding lawnmowerOcc:Tob: 1 ppd x 50 yrs; quit 2016EtOH: denies FamHx:no bladder ca Keegan Moralez MD, PHD [address] [place] [address],[facility] [address], [address], [facility] 10/26/2023 11:30:48 03/06/2024 text/html 78M s/p RC/IC on 10/04/21 for pT1N0 bladder cancer (-SMS, -LVI, 0 LN) and incidental pT2N0 [place] 3+4=7 prostate cancer (-SMS, -SVI, -LVI, 0/ LN). 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 Here today with his who provides much of the history. Had gross hematuria recently so PCP sent a UA/UC from the urostomy bag. He was not symptomatic of UTI at that time, aside from the hematuria; did not have fever/chills or flank pain. Culture grew >100K Enterobacter, 50-100K Enterococcus, 10-50K Citrobacter, and 10-50K Pseudomonas. Is on Xarelto. Changing stoma appliance q3-4 days still. Denies fever or chills today. No abdominal pain or flank pain. UA 3+RBC, 2+ protein, o/w negative Imagin09/15/21 CT A/P: multi-focal bladder wall masses [...] no hydro, no evidence recurrence, + LLL pneumonia Labs:10/11/21 Cr 0.84, Hgb 10.83/ NITIN Cr 0.765: Cr 1.09, Hgb 12.09; Cr 0.98, Hgb 13.5, PSA <0.033/: Cr 0.90, Hgb 13.1, cytol NEM04/06/23: Cr 0.94, Hgb 13.2, B12 482, cytol NEM10/14/23: Cr 0.98, Hgb 12.1 PSA Results10/19/22: <0.049: <0.023: <0.04 PMH: CAD s/p stent (>10 yrs ago), COPD, HL, RA (methotrexate)PSH: open choleSocHx: can walk a block, riding lawnmowerOcc:Tob: 1 ppd x 50 yrs; quit 2016EtOH: denies FamHx:no bladder ca TeresaKOTA De La Fuente [facility] 03/06/2024 15:11:02 03/07/2024 text/html urine drop off f or cytology- cytology sent KOTA Cerna [facility] 03/12/2024 09:00:53 04/23/2024 text/html 79M s/p RC/IC on 10/04/21 for pT1N0 bladder cancer (-SMS, -LVI, 0/ LN) and incidental pT2N0 [place] 3+4=7 prostate cancer (-SMS, -SVI, -LVI, 0/ LN). 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 Did have gross hematuria last month; now resolved. Imagin09/15/21 CT A/P: multi-focal bladder wall masses [...] Labs:10/11/21 Cr 0.84, Hgb 10.83/ NITIN Cr 0.765: Cr 1.09, Hgb 12.09/; Cr 0.98, Hgb 13.5, PSA <0.033/: Cr 0.90, Hgb 13.1, cytol NEM04/06/23: Cr 0.94, Hgb 13.2, B12 482, cytol NEM10/14/23: Cr 0.98, Hgb 12.: cytol NEM PSA Results10/19/22: <0.049/03/21: <0.023/: <0.04 PMH: CAD s/p stent (>10 yrs ago), COPD, HL, RA (methotrexate)PSH: open choleSocHx: can walk a block, riding lawnmowerOcc:Tob: 1 ppd x 50 yrs; quit 2017EtOH: denies FamHx:no bladder ca Keegan Moralez MD, PHD [address] [facility],[address], [place], [address], [place] [facility] 04/23/2024 15:28:19 10/22/2024 text/html 79M s/p RC/IC on 10/04/21 for pT1N0 bladder cancer (-SMS, -LVI, 0/29 LN) and incidental pT2N0 [place] 3+4=7 prostate cancer (-SMS, -SVI, -LVI, 0/29 LN). Also with incidental well-differentiated neuroendocrine tumor [...] Labs:10/11/21 Cr 0.84, Hgb 10.83/ NITIN Cr 0.765: Cr 1.09, Hgb 12.09; Cr 0.98, Hgb 13.5, PSA <0.033: Cr 0.90, Hgb 13.1, cytol NEM04/06/23: Cr 0.94, Hgb 13.2, B12 482, cytol NEM10/14/23: Cr 0.98, Hgb 12.19: cytol NEM10/20/24: cytol NEM, Cr 0.86, Hgb 12.4, B12 470 PSA Results10/19/22: <0.049/03/21: <0.023/: <0.043/: <0.02 PMH: CAD s/p stent (>10 yrs ago), COPD, HL, RA (methotrexate)PSH: open choleSocHx: can walk a block, riding lawnmowerOcc:Tob: 1 ppd x 50 yrs; quit 2016EtOH: denies FamHx:no bladder ca Keegan Moralez MD, PHD [address] [place] [address],[address] [facility] [place], [place], [address], [facility] 10/22/2024 11:57:32
--- OUTSIDE RECORDS SUMMARY | 2024-11-02 15:57 | XMS_ITS ---
Author Organization [facility] Care Team Providers Care Hand Mounter Name Role Phone Liberty Villeda Unavailable Unavailable Tj Yepez Unavailable Unavailable Allergies and adverse reactions Code CodeSystem Substance Reaction Severity StartDate Concern Status ADHESIVE Unknown 10/10/2021 active Care Team Name Role Address Phone Organization Dates Tj Yepez PCP Gen[facility] [address] [facility], [address], [place], [address], [place] (Office): [facility] 10/12/2021 - 10/20/2021 Liberty Villeda Attending Physician Genevirtua marlton [address] [facility] [address], [place], [address], [place] (Office): : [facility] 10/12/2021 - 10/20/2021 Immunizations Immunization Status Vaccine Details Vaccine Code CodeSystem Date Notes TB 2 Step Mantoux Skin Test completed tuberculin skin test; unspecified formulation lotNumber: [id number] expiry: 11/18/2022 Mfg: [employer] Given 0.1 ml Right Forearm intradermally Step 1 of Multi-step with next step required 98 CVX created date: 10/12/2021 consent date: 10/12/2021 administere d date: 10/12/2021 Read by Antony ruiz LPN on 0 at 0900. TDAP completed tetanus toxoid, reduced diphtheria toxoid, and acellular pertussis vaccine, adsorbed 115 CVX created date: 10/10/2021 administere d date: 08/11/2021 TDAP completed tetanus toxoid, reduced diphtheria toxoid, and acellular pertussis vaccine, adsorbed 115 CVX created date: 10/10/2021 administere d date: 03/16/2009 PPSV23, Pneumovax 23 completed pneumococcal polysaccharide vaccine, 23 valent 33 CVX created date: 10/10/2021 administere d date: 03/16/2009 PCV13, Uhektda96 completed pneumococcal conjugate vaccine, 13 valent 133 CVX created date: 10/10/2021 administere d date: 05/01/2016 Influenza-High Dose completed Influenza, high-dose, split virus, quadrivalent, injectable, preservative free 197 CVX created date: 10/10/2021 administere d date: 05/03/2021 COVID-19 Vaccine dose 1 completed SARS-COV-2 (COVID-19) vaccine, mRNA, spike protein, LNP, preservative free, 30 mcg/0.3mL dose Mfg: [employer] 208 CVX created date: 10/10/2021 administere d date: 09/21/2020 COVID-19 Vaccine dose 2 completed SARS-COV-2 (COVID-19) vaccine, mRNA, spike protein, LNP, preservative free, 30 mcg/0.3mL dose Mfg: [employer] 208 CVX created date: 10/10/2021 administere d date: 10/12/2020 COVID-19 Vaccine dose 3 completed unknown vaccine or immune globulin Mfg: [employer] 999 CVX created date: 10/10/2021 consent date: 10/10/2021 administere d date: 05/18/2021 Mental Status Section Date Assessment Total Score Description 10/20/2021 BIMS 13 cognitively int act CAM 0 No delirium ind icated PHQ-9 01 minimal depress ion 10/18/2021 BIMS 13 cognitively int act CAM 0 No delirium ind icated PHQ-9 01 minimal depress ion Problems Problem # Description Date of onset Resolved Date Code CodeSystem Concern Status 1 AFTERCARE FOLLOWING SURGERY FOR NEOPLASM 10/13/[address] active 2 ATHEROSCLEROTIC HEART DISEASE OF [place] CORONARY ARTERY WITHOUT ANGINA PECTORIS 10/13/[address] active 3 CONSTIPATION, UNSPECIFIED 10/13/[address] active 4 EMPHYSEMA, UNSPECIFIED 10/13/[address] active 5 ENCOUNTER FOR ATTENTION TO ILEOSTOMY 10/13/[address] active 6 ESSENTIAL (PRIMARY) HYPERTENSION 10/13/[address] active 7 HYPERLIPIDEMIA, UNSPECIFIED 10/13/[address] active 8 MALIGNANT NEOPLASM OF BLADDER, UNSPECIFIED 10/13/[address] active 9 MALIGNANT NEOPLASM OF PROSTATE 10/13/[address] active 10 NICOTINE DEPENDENCE, UNSPECIFIED, UNCOMPLICATED 10/13/[address] active 11 PRESENCE OF CORONARY ANGIOPLASTY IMPLANT AND GRAFT 10/13/[address] active 12 RHEUMATOID ARTHRITIS, UNSPECIFIED 10/13/[address] active 13 UNSPECIFIED ATRIAL FLUTTER 10/13/[address] active Reason for Referral No Reasons for Referral Entered Social History Social History Observation Description Start Date End Date Code Code System Current Smoking Status Tobacco smoking consumption unknown 494035178 SNOMED CT Sex Assigned At Male 1945 24560-3 [facility] Vital Signs Code Code System Vitals Name Values and Units Timing Information 22810-9 [facility] Weight Ocyhf=070.0 Units=Lbs 8462-4 [facility] Blood Pressure-Diastolic Value=64 Un its=mmHg 10/20/2021 8480-6 [facility] Blood Pressure-Systolic Cshes=183 Un its=mmHg 10/20/2021 8867-4 [facility] Heart rate Value=60.0 Units=/min 8310-5 [facility] Body Temperature Value=97.3 Units= F 10/20/2021 89388-5 [facility] O2 % BldC Oximetry Value=93.0 Units= % 10/20/2021 9279-1 [facility] Respiratory Rate Value=20.0 Units=/m in 10/17/2021 8302-2 [facility] Height Value=72.0 Units=Inches 10/13/2021
--- NOTE | 2024-11-02 16:23 | CRLHL7_ITS ---
For Patients: As a result of the Cures Act, medical imaging exams and procedure reports are released immediately into your electronic medical record. You may view this report before your referring provider. If you have questions, please contact your health care provider. INDICATION: Left arm pain. TECHNIQUE: Cervical spine 3 view. COMPARISON: None. FINDINGS: Bones: Alignment is normal. No displaced fractures or significant bone lesions. Joints: Multilevel degenerative disc disease and facet arthropathy, most pronounced at C3-C4 and C4-C5. Soft tissues: Unremarkable. Dictated by James Farmer MD @ 11/02/2024 4:55:37 PM (Electronically Signed)
--- NOTE | 2024-11-02 16:41 | ED.GENADULT ---
HPI - General Adult General Date Seen: 11/02/24 Chief complaint: Extremity Pain/Injury, Upper Stated complaint: L side numbness Time Seen by Provider: 11/02/24 15:57 Source: patient, family, RN notes reviewed and old records reviewed Mode of arrival: ambulatory Limitations: no limitations History of Present Illness HPI narrative: Mr. Barry is an 79-year-old gentleman who presents here with left arm altered sensation, that he has had on off for the past 10 days or so, he was seen on October [address] with similar complaints he describes numbness starting in his elbow coming up a little bit. From his left elbow on the triceps medial side, and then down to his 4th and 5th fingers of his left hand he is right-hand dominant. 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 He was seen at [address] and had a CT CTA done which were negative. He was sent out after the stroke workup, follow-up was on 11/01/2024 with his primary care physician who thought it was more like a peripheral nerve issue, and told him that they should do anything at this point. It recurred on the way here to [place] today as he was taking his to [place] [facility] to fulfill the requirement as [place] lost the basketball game, on the way there, he had also altered sensation in his left hand, he had no weakness associated with this, he was able to hang it down he said then it went away. Lasted for about 10-15 minutes. Denies any weakness in his left oral extremities, denies any problems with speech, facial issues, or any other stroke-like phenomena. 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 Related Data Allergies Allergy/AdvReac Type Severity Reaction Status Date / Time No Known Drug Allergies Allergy Verified 11/02/24 16:06 Review of Systems Status of ROS: Reports: 10 or more systems reviewed and unremarkable except as noted in History and below [facility] Social History Smoking Status: Former smoker What tobacco products do you use: cigarettes Smoking quit date/years: >15 years ago Second hand tobacco smoke exposure: No How often do you have a drink containing alcohol: never AUDIT-C Alcohol total score: 0 Non-prescribed substance use: denies use Exam Narrative: Exam Narrative: On examination here he is in no apparent distress, he is asymptomatic and his NIH screen is 0. GCS is 15/15 he is alert oriented x3. Pupils equal round reactive to light oropharynx is normal, mouth opening normal, smile is normal, neck extension is greater than 20 cm flexion is within 6, right side flexion is 20? left is 10?, rotation of left to 60 rotation of the right is 75 no palpable tenderness on his neck on palpation percussion, shoulder abduction normal biceps triceps power normal triceps power normal. Wrist dorsiflexion normal, weak finger abduction noted. On the left comparison to the right I would describe it as 4+ out of 5. Practice Management Consultant strengths are slightly weak on the left also in comparison to the right. Muscle bulk seems equal bilaterally, pulses radial and brachial are normal. On the left and right his reflexes are +2/4 biceps triceps brachioradialis. Sharp dull discrimination is a little altered over his C8 area on the left, but it is not above his elbow. And I was able to roll the ulnar nerve in the medial epitrochlear groove in reproduces symptoms. Const: Vital Signs, click to edit/add: Vital Signs - 24 hr 11/02/24 15:57 Temperature 98.9 F Pulse Rate [Right Pulse Oximeter] 66 Respiratory Rate 18 Blood Pressure [Ri ght Upper Arm] 137/100 H Pulse Oximetry 97 Oxygen Delivery Me thod Room Air Course Course ED Course: Discussed with the patient his , there is no evidence of a stroke air, this is a peripheral nerve issue, either arising in his neck, or possibly at his elbow which I am favor more, I would recommend follow-up with primary care and consideration of PT and possibly EMG testing, we went over signs and symptoms of worsening condition when he should come back. They were comfortable with this. Vital Signs Vital signs: Initial Vital Signs Temperature 98.9 F 11/02/24 15:57 Temperature Source Temporal Artery Scan 11/02/24 15:57 Pulse Rate 66 11/02/24 15:57 Pulse Rhythm Regular 11/02/24 15:57 Pulse Strength 3+ Normal 11/02/24 15:57 Respiratory Rate 18 11/02/24 15:57 Blood Pressure 137/100 H 11/02/24 15:57 Blood Pressure Mean 112 H 11/02/24 15:57 Blood Pressure Position Sitting 11/02/24 15:57 Pulse Oximetry 97 11/02/24 15:57 Oxygen Delivery Method Room Air 11/02/24 15:57 Vital Signs Temperature 98.9 F 11/02/24 15:57 Pulse Rate 66 11/02/24 15:57 Respiratory Rate 18 11/02/24 15:57 Blood Pressure 137/100 H 11/02/24 15:57 Pulse Oximetry 97 11/02/24 15:57 Oxygen Delivery Method Room Air 11/02/24 15:57 Temperature 98.9 F 11/02/24 15:57 Pulse Rate 66 11/02/24 15:57 Respiratory Rate 18 11/02/24 15:57 Blood Pressure 137/100 H 11/02/24 15:57 Pulse Oximetry 97 11/02/24 15:57 Oxygen Delivery Method Room Air 11/02/24 15:57 Medical Decision Making MDM Narrative Medical decision making narrative: During this evaluation I considered multiple diagnosis includes peripheral nerve issue issues secondary to ulnar neuropathy, cervical radiculopathy, stroke of either brain or spinal cord. Muscle weakness, or other issues such as biceps or triceps rupture. Nerve issues such as neuritis, secondary to either pressure, or other causes also considered. I discussed with him I suspect that this is all the related, could also be related to his neck, and could be a cervical issue, we will do us x-ray, now having follow-up with his primary care physician but I think reassurance is more in order here. With this history Medical Records Medical records reviewed: Yes I reviewed the patient's medical records Medical records narrative: Medical records from [address] from visits there on 10/24, and . Imaging Data Cervical spine x-ray: Attestation: I have reviewed the pertinent imaging results. My impression: No acute findings chronic findings with degenerative disc disease more pronounced at C4-5, C3-4. Slight reversal of cervical lordosis. No worrisome findings such as malignancy. Or osteolytic lesions Radiologist's impression: [place] [address] Diagnostic Imaging Report Patient: Paul Barry MR#: [id number] : 1945 Acct:[id number] Loc: ED Service Date: 11/02/[address]: Ordering Physician: Waqar Love M.D. Date of Service: 11/02/24 Procedure(s): XR cervical spine 2-3V Accession Number(s): [id number] cc: Tomas Weathers M.D.; Waqar Love M.D.~ For Patients: As a result of the Cures Act, medical imaging exams and procedure reports are released immediately into your electronic medical record. You may view this report before your referring provider. If you have questions, please contact your health care provider. INDICATION: Left arm pain. TECHNIQUE: Cervical spine 3 view. COMPARISON: None. FINDINGS: Bones: Alignment is normal. No displaced fractures or significant bone lesions. Joints: Multilevel degenerative disc disease and facet arthropathy, most pronounced at C3-C4 and C4-C5. Soft tissues: Unremarkable. Dictated by James Farmer MD @ 11/02/2024 4:55:37 PM Discharge Plan Discharge Clinical Impression: Ulnar neuropathy, Cervical radiculopathy at C8 Patient Disposition: Home w/ Parent or Adult Condition: Stable Instructions: Paresthesia (ED) Additional Instructions: Home rest, try to find a position where this does not come on, he may need some physical therapy, that order should come through your primary care physician, further to that consider doing a EMG testing. Return as needed. Reassurance given Activity Level: Light activity Follow Up/Referrals: Tj Yepez MD [Referring] - Stand Alone Forms: OfficeDrop Info Instructions
--- OUTSIDE RECORDS SUMMARY | 2024-11-02 16:53 | XMS_ITS | Continuity of Care Document ---
Author Organization [facility] Address [address] [facility] [address] [facility] [address] [place] [address] Phone Care Team Providers Care Feeder Catcher Name Role Phone Doretha CASTILLO, Silvano Unavailable [...] [facility] , [address], [place], [address], [place] tel:[phone] [facility] , No Information Skemp Silvano. [facility] [address], [place], [address], [place]. tel:[phone] [facility] , [address], [place], [address], [place] tel:[phone] [facility] , No Information 5 Skemp Silvano. [facility] [address], [place], [address], [place]. tel:[phone] Office/Outpa tient Visit, Est [facility] , [address], [place], [address], [place] tel:[phone] [facility] , Rheumatoid arthritis with rheumatoid factor of multiple sites without organ or systems involvementO [facility] (current) drug therapyEffus ion of right kneeOther chondrocalci nosis, left knee 4 Skemp Silvano. [facility] [address], [place], [address], [place]. tel:[phone] Referring Provider: Silvano Coyne A, [facility] [address], [place], [address]. tel:[phone] [facility] , [address], [place], [address], [place] tel:[phone] [facility] , No Information Sep-0 4 Skemp Silvano. [facility] [address], [place], [address], [place]. tel:[phone] Referring Provider: Silvano Coyne A, [facility] [address], [place], [address]. tel:[phone] Office/Outpa tient Visit, Est [facility] , [address], [place], [address], [place] tel:[phone] [facility] , Rheumatoid arthritis with rheumatoid factor of multiple sites without organ or systems involvementO ther [facility] (current) drug therapyEffus ion of right kneeOther chondrocalci nosis, left knee Sep-0 4 Skemp Silvano. [facility] [address], [place], [address], [place]. tel:[phone] Referring Provider: Silvano Bishop, [facility] [address], [place], [address]. tel:[phone] Office/Outpa tient Visit, Est [facility] , [address], [place], [address], [place] tel:[phone] [facility] , Rheumatoid arthritis with rheumatoid factor of multiple sites without organ or systems involvementP ain in left kneeOther [facility] (current) drug therapyPrima ry osteoarthrit is of left kneeOther chondrocalci nosis, left knee Vinnie-2 4 Skemp Silvano. [facility] [address], [place], [address], [place]. tel:[phone] Referring Provider: Silvano Bishop, [facility] [address], [place], [address]. tel:[phone] [facility] , [address], [place], [address], [place] tel:[phone] [facility] , No Information 3 Skemp Silvano. [facility] [address], [place], [address], [place]. tel:[phone] Referring Provider: Silvano Bishop, [facility] [address], [place], [address]. tel:[phone] Office/Outpa tient Visit, Est [facility] , [address], [place], [address], [place] tel:[phone] [facility] , Rheumatoid arthritis with rheumatoid factor of multiple sites without organ or systems involvementO ther [facility] (current) drug therapyPain in lt kneeHyponatr emiaOther chondrocalci nosis, left knee 3 Skemp Silvano. [facility] [address], [place], [address], [place]. tel:[phone] Referring Provider: Silvano Bishop, [facility] [address], [place], [address]. tel:[phone] Office/Outpa tient Visit, Est [facility] , [address], [place], [address], [place] tel:[phone] [facility] , Rheumatoid arthritis with rheumatoid factor of multiple sites without organ or systems involvementO ther [facility] (current) drug therapyPain in unspecified knee 3 Skemp Silvano. [facility] [address], [place], [address], [place]. tel:[phone] Referring Provider: Silvano Bishop, [facility] [address], [place], [address]. tel:[phone] Office/Outpa tient Visit, Est [facility] , [address], [place], [address], [place] tel:[phone] [facility] , Rheumatoid arthritis with rheumatoid factor of multiple sites without organ or systems involvementO ther [facility] (current) drug therapy 3 Skemp Silvano. [facility] [address], [place], [address], [place]. tel:[phone] Referring Provider: Silvano Bishop, [facility] [address], [place], [address]. tel:[phone] Office/Outpa tient Visit, Est [facility] , [address], [place], [address], [place] tel:[phone] [facility] , Rheumatoid arthritis with rheumatoid factor of multiple sites without organ or systems [facility] [facility] [place] [facility] drug therapy 2 Skemp Silvano. [facility] [address], [place], [address], [place]. tel:[phone] Referring Provider: Silvano Bishop [facility] [address], [place], [address]. tel:[phone] Office/Outpa tient Visit, Est [facility] , [address], [place], [address], [place] tel:[phone] [facility] , Rheumatoid arthritis with rheumatoid factor of multiple sites without organ or systems involvementO ther [facility] (current) drug therapy Skemp Silvano. [facility] [address], [place], [address], [place]. tel:[phone] Referring Provider: Silvano Bishop, [facility] [address], [place], [address]. tel:[phone] Office/Outpa tient Visit, Est [facility] , [address], [place], [address], [place] tel:[phone] [facility] , Rheumatoid arthritis (chief complaint)Mo nitor Chronic High Risk Meds (chief complaint) Rheumatoid arthritis with rheumatoid factor of multiple sites without organ or systems involvement[place] [facility] [place] [facility] drug therapy Skemp Silvano. [facility] [address], [place], [address], [place]. tel:[phone] Referring Provider: Silvano Bishop, [facility] [address], [place], [address]. tel:[phone] Office/Outpa tient Visit, Est [facility] , [address], [place], [address], [place] tel:[phone] [facility] , Rheumatoid arthritis (chief complaint)Mo nitor Chronic High Risk Meds (chief complaint) Rheu arthritis w rheu factor mult site w/o org/sys involvOther [facility] [facility] drug therapy Sep-1 4-202 0 Skemp Silvano. [facility] [address], [place], [address], [place]. tel:[phone] Referring Provider: Silvano Bishop, [facility] [address], [place], [address]. tel:[phone] [facility] , [address], [place], [address], [place] tel:[phone] [facility] , No Information 0 Skemp Silvano. [facility] [address], [place], [address], [place]. tel:[phone] Office/Outpa tient Visit, Est [facility] , [address], [place], [address], [place] tel:[phone] [facility] , Rheumatoid arthritis (chief complaint)Mo nitor Chronic High Risk Meds (chief complaint) Rheu arthritis w rheu factor mult site w/o org/sys [facility] drug therapy 0 Skemp Silvano. [facility] [address], [place], [address], [place]. tel:[phone] Referring Provider: Silvano Bishop, [facility] [address], [place], [address]. tel:[phone] Office/Outpa tient Visit, Est [facility] , [address], [place], [address], [place] tel:[phone] [facility] , Rheumatoid arthritis (chief complaint)Mo nitor Chronic High Risk Meds (chief complaint) Rheu arthritis w rheu factor mult site w/o org/sys involvOther [facility] (current) drug therapy 9 Skemp Silvano. [facility] [address], [place], [address], [place]. tel:[phone] Referring Provider: Silvano Bishop, [facility] [address], [place], [address]. tel:[phone] Office/Outpa tient Visit, Est [facility] , [address], [place], [address], [place] tel:[phone] [facility] , Rheumatoid arthritis (chief complaint)Mo nitor Chronic High Risk Meds (chief complaint) Rheu arthritis w rheu factor [facility] site w/o org/sys involvOther [place] [facility] drug therapy 8 Skemp Silvano. [facility] [address], [place], [address], [place]. tel:[phone] Referring Provider: Silvano Bishop, [facility] [address], [place], [address]. tel:[phone] Office/Outpa tient Visit, Est [facility] , [address], [place], [address], [place] tel:[phone] [facility] , Rheumatoid arthritis (chief complaint) Rheumatoid arthritis with rheumatoid factor of multiple sites without organ or systems [facility] [place] [facility] drug therapy 8 Skemp Silvano. [facility] [address], [place], [address], [place]. tel:[phone] Referring Provider: Silvano Bishop, [facility] [address], [place], [address]. tel:[phone] Office/Outpa tient Visit, Est [facility] , [address], [place], [address], [place] tel:[phone] [facility] , Rheumatoid arthritis (chief complaint)Mo nitor Chronic High Risk Meds (chief complaint) Rheumatoid arthritis with rheumatoid factor of multiple sites without organ or systems involvementO ther [facility] (current) drug therapy Skemp Silvano. [facility] [address], [place], [address], [place]. tel:[phone] Referring Provider: Silvano Bishop, [facility] [address], [place], [address]. tel:[phone] Office/Outpa tient Visit, Est [facility] , [address], [place], [address], [place] tel:[phone] [facility] , Rheumatoid arthritis (chief complaint)Mo nitor Chronic High Risk Meds (chief complaint) Rheumatoid arthritis with rheumatoid factor of multiple sites without organ or systems [facility] [place] [facility] ([facility] drug therapy Skemp Silvano. [facility] [address], [place], [address], [place]. tel:[phone] Referring Provider: Silvano Bishop [facility] [address], [place], [address]. tel:[phone] Office/Outpa tient Visit, Est [facility] , [address], [place], [address], [place] tel:[phone] [facility] , Rheumatoid arthritis (chief complaint)Mo nitor Chronic High Risk Meds (chief complaint) Rheumatoid arthritis with rheumatoid factor of multiple sites without organ or systems involvementH ematuriaOthe r [place] [facility] (current) drug therapyPerso nal history of nicotine dependence 6 Skemp Silvano. [facility] [address], [place], [address], [place]. tel:[phone] Referring Provider: Silvano Bishop, [facility] [address], [place], [address]. tel:[phone] Office/Outpa tient Visit, Est [facility] , [address], [place], [address], [place] tel:[phone] [facility] , Rheumatoid arthritis (chief complaint)Mo nitor Chronic High Risk Meds (chief complaint) Rheumatoid arthritis with rheumatoid factor of multiple sites without organ or systems involvementO ther [facility] (current) drug therapyHemat uria 6 Skemp Silvano. [facility] [address], [place], [address], [place]. tel:[phone] Referring Provider: Silvano Bishop [facility] [address], [place], [address]. tel:[phone] Office/Outpa tient Visit, Est [facility] , [address], [place], [address], [place] tel:[phone] [facility] , Rheumatoid arthritis (chief complaint)Mo nitor Chronic High Risk Meds (chief complaint) Rheumatoid arthritis with rheumatoid factor of multiple sites without organ or systems involvementO [facility] [place] [facility] ([facility] drug therapy 5 Skemp Silvano. [facility] [address], [place], [address], [place]. tel:[phone] Referring Provider: Silvano Coyne A, [facility] [address], [place], [address]. tel:[phone] Office/Outpa tient Visit, Est [facility] , [address], [place], [address], [place] tel:[phone] [facility] , Rheumatoid arthritis (chief complaint)Mo nitor Chronic High Risk Meds (chief complaint) [facility] 5 Skemp Silvano. [facility] [address], [place], [address], [place]. tel:[phone] Referring Provider: Silvano Coyne A, [facility] [address], [place], [address]. tel:[phone] Office/Outpa tient Visit, Est [facility] , [address], [place], [address], [place] tel:[phone] [facility] , Rheumatoid Arthritis (chief complaint)Mo nitor chronic high risk medications (chief complaint) [facility] 4 Skemp Silvano. [facility] [address], [place], [address], [place]. tel:[phone] Referring Provider: Silvano Haileemp A, [facility] [address], [place], [address]. tel:[phone] Office/Outpa tient Visit, Est [facility] , [address], [place], [address], [place] tel:[phone] [facility] , Rheumatoid Arthritis (chief complaint)Mo nitor chronic high risk medications (chief complaint) Rhe[facility]oid [facility] MonitoringAb normal Liver Enzymes 4 Skemp Silvano. [facility] [address], [place], [address], [place]. tel:[phone] Referring Provider: Silvano Bishop, [facility] [address], [place], [address]. tel:[phone] Office/Outpa tient Visit, Est [facility] , [address], [place], [address], [place] tel:[phone] [facility] , Rheumatoid Arthritis (chief complaint)Mo nitor chronic high risk medications (chief complaint) [facility] 3 Skemp Silvano. [facility] [address], [place], [address], [place]. tel:[phone] Referring Provider: Silvano Bishop, [facility] [address], [place], [address]. tel:[phone] Office/Outpa tient Visit, Est [facility] , [address], [place], [address], [place] tel:[phone] [facility] , Rheumatoid Arthritis (chief complaint)Mo nitor chronic high risk medications (chief complaint) [facility] 3 Skemp Silvano. [facility] [address], [place], [address], [place]. tel:[phone] Referring Provider: Silvano Bishop, [facility] [address], [place], [address]. tel:[phone] Office/Outpa tient Visit, Est [facility] , [address], [place], [address], [place] tel:[phone] [facility] , Rheumatoid Arthritis (chief complaint)Mo nitor chronic high risk medications (chief complaint) [facility] Mar- 2 Skemp Silvano. [facility] [address], [place], [address], [place]. tel:[phone] Referring Provider: Silvano Bishop, [facility] [address], [place], [address]. tel:[phone] Family History Family Member Type Diagnosis Age At Onset No Information Immunizations Vaccine Date Status Comments COVID-19 Moderna administered Source: Ot er Provider COVID-19 Moderna administered Source: Ot er Provider Payers Payer name Insurance type Covered democrat ID elvia mejía(s) [facility] Advantage CI [id number] Social History Type Description Quantity Date Captured [...] ee X-ray; Limited (1 or 2 views) (49441), Sent on: Sent Future Order: Radiology Order Kn ee X-ray; Limited (3 views) ([id number]), Ordered on: Ordered History Of Present Illness [...]
--- OUTSIDE RECORDS SUMMARY | 2024-11-02 16:54 | XMS_ITS | Clinical Summary ---
Author Organization [employer] [facility] Address [address] [place] [address] Care Team Providers Care Shell Maker Lockstitch Name Role Phone Silvano Coyne MD Unavailable [phone] Tomas Weathers MD Primary Care Provider Keegan Moralez MD Unavailable + Irais Jung MD Unavailable Maria Guadalupe Dumont NP Unavailable Funmi Caro RN, BSN Unavailable [phone] Allergies Active Allergy Reactions Criticality Noted Date [...] AM CDT Office Visit [facility] [address] [place] [address] Tomas Weathers MD ER Follow up (Left arm numbness and tingling); Abdominal Pain (Frequent stools) 10/31/2024 Travel 10/24/2024 4:34 PM CDT - 10/24/2024 6:49 PM CDT Emergency [facility] [address] [place] [address] Anjelica Cook PA Royston, Hilary Michelle, MD Numbness and tingling in left arm (Primary Dx) Discharge Disposition: Home Self Care 10/24/2024 Travel 10/20/2024 9:26 AM CDT - 10/20/2024 11:59 PM CDT Hospital Encounter [facility] [address] [place] [address] 10/20/2024 9:25 AM CDT Hospital Encounter [facility] [address] [place] [address] Keegan Moralez MD Malignant neoplasm of urinary bladder, unspecified site (HC) 10/20/2024 Lab Requisition [facility] [address] [place] [address] Keegan Moralez MD 10/20/2024 Travel 09/22/[address] [facility] [address] [place] [address] Irais Jung MD Results 09/18/2024 1:45 PM TANKAGE SUPERVISOR Office Visit [facility] [place] [address] [address] Brando Flanagan DPM Follow Up (Toenail fungus recheck) 09/18/2024 11:30 AM TANKAGE SUPERVISOR Office Visit [facility] [address] [place] [address] Irais Jung MD Follow Up (Malignant neoplasm of urinary bladder) 09/18/2024 Travel 09/16/2024 8:23 AM TANKAGE SUPERVISOR - 09/16/2024 11:59 PM TANKAGE SUPERVISOR Hospital Encounter [facility] [address] [place] [address] Malignant neoplasm of urinary bladder, unspecified site (HC); Primary prostate adenocarcinoma (HC); Neuroendocrine neoplasm of appendix (HC); Malignant neoplasm of urinary bladder, unspecified site (HC) [C67.9] 09/16/2024 8:00 AM TANKAGE SUPERVISOR Office Visit [facility] [address] [place] [address] Fartun Li PA Consult (Mouth sore) 09/16/2024 Travel 09/12/2024 Telephone [facility] [address] [place] [address] Brando Flanagan DPM Appointment Request (TOENAIL CONCERN) from Last 3 Months Immunizations Immunization Administration Dates Next Due AMB INFLUENZA IIV3 (AGE 65+ YRS) PF (Flu Clinic Only) 04/18/2019,05/03/2018 COVID-19 VACCINE SPIKEVAX (M ODERNA 50MCG/0.5ML) 12YO+ PFS 05/17/2023 COVID-19 vaccine (Moderna 100mcg/0.5mL) PF, MDV 05/18/2021 COVID-19 vaccine ([employer]-Bio NTech 30mcg/0.3mL) 12YO+ BIVALENT PF, MDV 04/20/2022 [...] 4 good heal th Heart Disease Father [place] Blood Disease Maternal Uncle Diabetes Mother Good [...] on file Legal Sex Male 5:23 AM TANKAGE SUPERVISOR Gender Identity Not on file Sexual Orientation [...] Description 11/06/2024 11:00 AM CDT Office Visit [facility] [address] [place] [address] Magdalena Hamlin PA [address] [place] [address] 12/08/2024 8:45 AM CDT Orders Only [address] [phone] [facility] 12/15/2024 8:30 AM CDT Appointment [facility] [address] [place] [address] 12/17/2024 11:15 AM CDT Office Visit [facility] [address] [place] [address] Maria Guadalupe Dumont, DIGITAL MEDIA PLANNER [address] [place] [address] 12/31/2024 10:30 AM CDT Office Visit [address] [phone] Tomas Weathers MD [address] [place] [address] Health Maintenance Due Date Last Done Comments [...] IRON BINDING CAP Today 09/16/2024 8:29 AM TANKAGE SUPERVISOR Malignant neoplasm of urinary bladder, unspecified site (HC) [C67.9] FERRITIN Today 09/16/2024 8:29 AM TANKAGE SUPERVISOR Malignant neoplasm of urinary bladder, unspecified site (HC) [C67.9] CBC WITH AUTO DIFFERENTIAL Timed 09/16/2024 8:29 AM TANKAGE SUPERVISOR Malignant neoplasm of urinary bladder, unspecified site (HC) Primary prostate adenocarcinoma (HC) Neuroendocrine neoplasm of appendix (HC) COMP METABOLIC PANEL Today 09/16/2024 8:29 AM TANKAGE SUPERVISOR Malignant neoplasm of urinary bladder, unspecified site (HC) Primary prostate adenocarcinoma (HC) Neuroendocrine neoplasm of appendix (HC) CBC WITH AUTO DIFFERENTIAL Today 09/16/2024 8:29 AM TANKAGE SUPERVISOR Malignant neoplasm of urinary bladder, unspecified site [...] - 11.0 thou/cu mm 10/24/2024 5:07 PM [facility] RED BLOOD COUNT 4.30 4.30 - 5.90 mil/cu mm 10/24/2024 5:07 PM [facility] HEMOGLOBIN 11.6(L) 13.5 - 17.5 g/dL 10/24/2024 5:07 PM [facility] HEMATOCRIT 36.5(L) 37.0 - 53.0 % 10/24/2024 5:07 PM [facility] MCV 85 80 - 100 fL 10/24/2024 5:07 PM [facility] MCH 27.0 26.0 - 34.0 pg 10/24/2024 5:07 PM [facility] MCHC 31.8(L) 32.0 - 36.0 g/dL 10/24/2024 5:07 PM [facility] RDW 19.5(H) 11.5 - 15.5 % 10/24/2024 5:07 PM [facility] PLATELET COUNT 223 140 - 440 thou/cu mm 10/24/2024 5:07 PM [facility] MPV 9.9 6.5 - 11.0 fL 10/24/2024 5:07 PM [facility] % NEUT 69.8 % 10/24/2024 5:07 PM T [facility] % LYMPH 17.6 % 10/24/2024 5:07 PM [facility] % MONO 10.1 % 10/24/2024 5:07 PM T [facility] % EOS 1.4 % 10/24/2024 5:07 PM [facility] % BASO 1.1 % 10/24/2024 5:07 PM T [facility] ABSOLUTE NEUTROPHILS 3.1 1.7 - 7.0 thou/cu mm 10/24/2024 5:07 PM T [facility] ABSOLUTE LYMPHOCYTES 0.8(L) 0.9 - 2.9 thou/cu mm 10/24/2024 5:07 PM T [facility] ABSOLUTE MONOCYTES 0.5 <0.9 thou/cu mm 10/24/2024 5:07 PM [facility] ABSOLUTE EOSINOPHILS 0.1 <0.5 thou/cu mm 10/24/2024 5:07 PM T [facility] ABSOLUTE BASOPHILS 0.1 <0.3 thou/cu mm 10/24/2024 5:07 PM T [facility] Blood BLOOD SPECIMEN / Unknown Venipuncture / Unknown 10/24/2024 4:59 PM CDT 10/24/2024 5:02 PM CDT Anjelica ANTOINE HEMATOLOGY Final R esult [facility] [address] [place] [address] * MAGNESIUM (10/24/2024 4:59 PM CDT) MAGNESIUM 1.8 1.6 - 2.4 mg/dL 10/24/2024 5:22 PM CDT [facility] Blood BLOOD SPECIMEN / Unknown Venipuncture / Unknown 10/24/2024 4:59 PM CDT 10/24/2024 5:02 PM CDT us Anjelica ANTOINE CHEMISTRY Final R esult [facility] [address] [facility] [place] [address] * (ABNORMAL) BASIC METABOLIC PANEL (10/24/2024 4:59 PM CDT) Only the most recent of2 resultswithin the time period is included. SODIUM 134(L) 136 - 145 mmol/L 10/24/2024 5:22 PM [facility] POTASSIUM 4.1 3.5 - 5.1 mmol/L 10/24/2024 5:22 PM [facility] CHLORIDE 101 98 - 107 mmol/L 10/24/2024 5:22 PM [facility] CO2,TOTAL 24 22 - 29 mmol/L 10/24/2024 5:22 PM [facility] ANION GAP 9 5 - 18 10/24/2024 5:22 PM [facility] GLUCOSE 130(H) 70 - 99 mg/dL 10/24/2024 5:22 PM [facility] CALCIUM 9.4 8.8 - 10.4 mg/dL 10/24/2024 5:22 PM [facility] Comment: Reference ranges for this test were updated on 06/03/2024 to reflect our healthy population more accurately. Reference range changes are not retroactively applied to results, but previous results using the same methodology can be interpreted in the context of the new reference range. BUN 18 8 - 23 mg/dL 10/24/2024 5:22 PM [facility] CREATININE 0.90 0.70 - 1.20 mg/dL 10/24/2024 5:22 PM [facility] BUN/CREAT RATIO 20 10 - 20 5:22 PM [facility] eGFR 86(L) >90 mL/min/1. 73m2 10/24/2024 5:22 PM [facility] Comment:As of 2021, eG FR is [...] CHEMISTRY Final R esult Performing Organization Address City/[facility]/ZIP Co de Phone Number [facility] [address] [place] [address] * LAB TRACKING EVENT (10/20/2024 10:34 AM CDT) Other (Other) Non-Blood / Unknown 10/20/2024 10:34 AM CDT 10/20/2024 10:36 AM CDT Keegan Moralez MD LAB BILL ONLY Fi nal Result Performing Organization Address [facility] Co de Phone Number [facility] [address] [place] [address], [place] * (ABNORMAL) CBC W PLT NO DIFF (10/20/2024 10:34 AM CDT) WHITE BLOOD COUNT 4.8 4.5 - 11.0 thou/cu mm 10/20/2024 10:47 AM T [facility] RED BLOOD COUNT 4.61 4.30 - 5.90 mil/cu mm 10/20/2024 10:47 AM T [facility] HEMOGLOBIN 12.4(L) 13.5 - 17.5 g/dL 10/20/2024 10:47 AM [facility] HEMATOCRIT 39.7 37.0 - 53.0 % 10/20/2024 10:47 AM [facility] MCV 86 80 - 100 fL 10/20/2024 10:47 AM T [facility] MCH 26.9 26.0 - 34.0 pg 10/20/2024 10:47 AM [facility] MCHC 31.2(L) 32.0 - 36.0 g/dL 10/20/2024 10:47 AM CDT [facility] RDW 20.4(H) 11.5 - 15.5 % 10/20/2024 10:47 AM CDT [facility] PLATELET COUNT 222 140 - 440 thou/cu mm 10/20/2024 10:47 AM CDT [facility] MPV 9.8 6.5 - 11.0 fL 10/20/2024 10:47 AM CDT [facility] Blood BLOOD SPECIMEN / Unknown Venipuncture / Unknown 10/20/2024 10:34 AM CDT 10/20/2024 10:36 AM CDT Keegan Moralez MD HEMATOLOGY Fi nal Result Performing Organization Address City/[facility]/ZIP Co de Phone Number [facility] [address] [place] [address] * PSA TOTAL (10/20/2024 10:34 AM CDT) PSA TOTAL <0.02 <4.00 ng/mL 10/20/2024 11:19 PM CDT [facility] Blood BLOOD SPECIMEN / Unknown Venipuncture / Unknown 10/20/2024 10:34 AM CDT 10/20/2024 10:36 AM CDT Narrative [facility] - 10/20/2024 11:19 PM CDT The [...] CHEMISTRY Fi nal Result Performing Organization Address City/[facility]/ZIP Co de Phone Number [facility] [address] [address], [place] * VITAMIN B12 (10/20/2024 10:34 AM CDT) VITAMIN B12 470 232 - 1,245 pg/mL 10/20/2024 11:14 PM CDT [facility] Blood BLOOD SPECIMEN / Unknown Venipuncture / Unknown 10/20/2024 10:34 AM CDT 10/20/2024 10:36 AM CDT Narrative [facility] - 10/20/2024 11:14 PM CDT Biotin supplements may cause clinically significant interference for this test assay. If interference is suspected, it is strongly recommended that biotin is discontinued for at least one week prior to retesting. Keegan Moralez MD CHEMISTRY Fi nal Result [facility] [address] [address], [place] * PATH URINE CYTOLOGY (10/20/2024 10:27 AM CDT) Case Report Medical Cytology Report Case: [id number] Authorizing Provider: Keegan Moralez Collected: 10/20/2024 102Scarlet Wang MD Ordering Location: [facility] Received: 10/21/[address] [place] [address] Pathologist: Maureen Camp DO Specimen: Urine 10/21/2024 3:16 PM CDT [facility] Final Diagnosis A) URINE, CYTOLOGY: 1. Negative for high grade urothelial carcinoma 2. Cytologic changes consistent with urinary diversion 3. Scant cellularity 10/21/2024 3:16 PM CDT [facility] at 1515 CDT Comment A) According to the Brandi System of reporting urinary cytology, the diagnosis of negative for high-grade urothelial carcinoma indicates the sample is composed of benign urothelial cells and that cells of high-grade urothelial carcinoma are absent. This does not exclude benign and low-grade urothelial neoplasia. 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 All slides were reviewed. The microscopic appearance substantiates the diagnosis. All slides were reviewed microscopically. Specimen adequacy: Adequate for interpretation. The microscopic appearance substantiates the diagnosis. 10/21/2024 3:16 PM CDT [facility] Additional Information Cytology is screened at [facility] - [address], [place] [address] and [facility] - [address] [place] [address] and [facility] - [address] [place] [address] Interpreted at [facility] - [address], [place] [address] 10/21/2024 3:16 PM CDT [facility] Urine URINE SPECIMEN / Unknown 10/20/2024 10:27 AM CDT 10/21/2024 9:50 AM CDT Keegan Moralez MD PATHOLOGY/CYTOLOGY Final Result [facility] [address] [place] [address], [place] * CT ABDOMEN PELVIS UROGRAM WWO [...] PLUS IRON BINDING CAP (09/16/2024 8:29 AM TANKAGE SUPERVISOR) IRON 31(L) 61 - 157 ug/dL 09/18/2024 4:50 PM TANKAGE SUPERVISOR [facility] UIBC (UNSATURATED) 353(H) 112 - 347 ug/dL 09/18/2024 4:50 PM TANKAGE SUPERVISOR [facility] IRON BINDING CAPACITY 384 250 - 400 ug/dL 09/18/2024 4:50 PM TANKAGE SUPERVISOR [facility] IRON,% SATURATION 8(L) 14 - 50 % 09/18/2024 4:50 PM TANKAGE SUPERVISOR [facility] Blood BLOOD SPECIMEN / Unknown Venipuncture / Unknown 09/16/2024 8:29 AM TANKAGE SUPERVISOR 09/16/2024 8:29 AM TANKAGE SUPERVISOR Irais Jung MD CHEMISTRY Final Resu lt Performing Organization Address City/[facility]/ZIP Co de Phone Number [facility] [address] [address], [place] * (ABNORMAL) FERRITIN (09/16/2024 8:29 AM TANKAGE SUPERVISOR) FERRITIN 18.4(L) 30.0 - 400.0 ng/mL 09/18/2024 4:[address] [facility] Blood BLOOD SPECIMEN / Unknown Venipuncture / Unknown 09/16/2024 8:29 AM TANKAGE SUPERVISOR 09/16/2024 8:29 AM TANKAGE SUPERVISOR us Irais Jung MD CHEMISTRY Final Resu lt [facility] [address] [place] [address], [place] * (ABNORMAL) COMP METABOLIC PANEL (09/16/2024 8:29 AM TANKAGE SUPERVISOR) SODIUM 138 136 - 145 mmol/L 09/16/2024 8:55 AM TANKAGE SUPERVISOR [facility] POTASSIUM 4.2 3.5 - 5.1 mmol/L 09/16/2024 8:55 AM TANKAGE SUPERVISOR [facility] CHLORIDE 102 98 - 107 mmol/L 09/16/2024 8:55 AM [facility] CO2,TOTAL 28 22 - 29 mmol/L 09/16/2024 8:55 AM [facility] ANION GAP 8 5 - 18 09/16/2024 8:55 AM [facility] GLUCOSE 89 70 - 99 mg/dL 09/16/2024 8:55 AM [facility] CALCIUM 9.9 8.8 - 10.4 mg/dL 09/16/2024 8:55 AM [facility] Comment: Reference ranges for this test were updated on 06/03/2024 to reflect our healthy population more accurately. Reference range changes are not retroactively applied to results, but previous results using the same methodology can be interpreted in the context of the new reference range. BUN 20 8 - 23 mg/dL 09/16/2024 8:55 AM [facility] CREATININE 0.80 0.70 - 1.20 mg/dL 09/16/2024 8:55 AM [facility] BUN/CREAT RATIO 25(H) 10 - 20 8:55 AM [facility] eGFR 89(L) >90 mL/min/1.7 3m2 09/16/2024 8:55 AM [facility] Comment:As of 2021, eG FR is calculated by the CKD-EPI creatinine equation without race adjustment. eGFR can be influenced by muscle mass, exercise, and diet. The reported eGFR is an estimation only and is only applicable if the renal function is stable. ALBUMIN 4.2 4.0 - 4.9 g/dL 09/16/2024 8:55 AM [facility] PROTEIN,TOTAL 7.0 6.0 - 8.0 g/dL 09/16/2024 8:55 AM [facility] BILIRUBIN,TOTAL 0.5 0.0 - 1.2 mg/dL 09/16/2024 8:55 AM [facility] ALK PHOSPHATASE 102 40 - 129 IU/L 09/16/2024 8:55 AM [facility] ALT (SGPT) 10 10 - 50 IU/L 09/16/2024 8:55 AM TANKAGE SUPERVISOR [facility] AST (SGOT) 19 10 - 50 IU/L 09/16/2024 8:55 AM TANKAGE SUPERVISOR [facility] Blood BLOOD SPECIMEN / Unknown Venipuncture / Unknown 09/16/2024 8:29 AM TANKAGE SUPERVISOR 09/16/2024 8:29 AM TANKAGE SUPERVISOR Maria Guadalupe Dumont NP CHEMISTRY Final Result [facility] [address] [place] [address] from Last 3 Months Insurance [id number] [place] [address] MEDICARE PART A HB ONLY MEDICARE ADVANTAGE [id number] [place] [address] MEDICARE PART A HB ONLY MEDICARE PART B HB ONLY MR HP [facility] Advance Directives * Full Code (Latest Code [...] 1:26 AM 08/07/2013 1:06 PM Care Teams Shell Maker Lockstitch Relationship Specialty Start Date End Date Toams Weathers MD [address] [facility] [place] [address] PCP - General Family Practice 10/15/17 Silvano Coyne MD [address] [place] [id number] Internal Medicine 10/02/11 Keegan Moralez MD [address] [place] [address] Surgery - Urology 09/13/21 Irais Jung MD 200 [facility] [address] Oncology 10/31/21 Maria Guadalupe Dumont NP 200 [facility] [address] Oncology 10/31/21 Funmi Caro, RN, BSN [address] [address] Nurse Navigator - Oncology Registered Nurse 03/24/24
--- OUTSIDE RECORDS SUMMARY | 2024-11-02 16:54 | XMS_ITS ---
Author Organization [facility] Care Team Providers Care Hat Brusher Machine Name Role Phone Liberty Villeda Unavailable Unavailable Tj Yepez Unavailable Unavailable Allergies and adverse reactions Code CodeSystem Substance Reaction Severity StartDate Concern Status ADHESIVE Unknown 10/10/2021 active Care Team Name Role Address Phone Organization Dates Tj Yepez PCP Genevive [address], [address], [place], [address], [place] (Office): [facility] 10/12/2021 - 10/20/2021 Liberty Villeda Attending Physician [facility] [address], [place], [address], [place] (Office): : [facility] 10/12/2021 - 10/20/2021 Immunizations Immunization Status Vaccine Details Vaccine Code CodeSystem Date Notes TB 2 Step Mantoux Skin Test completed tuberculin skin test; unspecified formulation lotNumber: [id number] expiry: 11/18/2022 Mfg: sanofi pasteur limited Given [...] date: 10/10/2021 administere d date: 03/16/2009 PCV13, [id number] completed pneumococcal conjugate vaccine, 13 valent 133 CVX created date: 10/10/2021 administere d date: 05/01/2016 Influenza-High Dose completed Influenza, high-dose, split virus, quadrivalent, injectable, preservative free 197 CVX created date: 10/10/2021 administere d date: 05/03/2021 COVID-19 Vaccine dose 1 completed SARS-COV-2 (COVID-19) vaccine, mRNA, spike protein, LNP, preservative free, 30 mcg/0.3mL dose Mfg: ERN 208 CVX created date: 10/10/2021 administere d date: 09/21/2020 COVID-19 Vaccine dose 2 completed SARS-COV-2 (COVID-19) vaccine, mRNA, spike protein, LNP, preservative free, 30 mcg/0.3mL dose Mfg: ERN 208 CVX created date: 10/10/2021 administere d date: 10/12/2020 COVID-19 Vaccine dose 3 completed unknown vaccine or immune globulin Mfg: ERN 999 CVX created date: 10/10/2021 consent date: [...] AFTERCARE FOLLOWING SURGERY FOR NEOPLASM 10/13/[address] active 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 10/13/[address] active 3 CONSTIPATION, UNSPECIFIED 10/13/[address] active 4 EMPHYSEMA, UNSPECIFIED 10/13/[address] active 5 ENCOUNTER FOR ATTENTION TO ILEOSTOMY 10/13/[address] active 6 ESSENTIAL (PRIMARY) HYPERTENSION 10/13/[address] active 7 HYPERLIPIDEMIA, UNSPECIFIED 10/13/[address] active 8 MALIGNANT NEOPLASM OF BLADDER, UNSPECIFIED 10/13/[address] active 9 MALIGNANT NEOPLASM OF PROSTATE 10/13/[address] active 10 NICOTINE DEPENDENCE, UNSPECIFIED, UNCOMPLICATED 10/13/[address] active 11 PRESENCE OF CORONARY ANGIOPLASTY IMPLANT AND GRAFT 10/13/[address] active 12 RHEUMATOID ARTHRITIS, UNSPECIFIED 10/13/[address] active 13 UNSPECIFIED ATRIAL FLUTTER 10/13/[address] active Reason for Referral No Reasons for Referral Entered Social History Social History Observation Description Start Date End Date Code Code System Current Smoking Status Tobacco smoking consumption unknown 524581742 SNOMED CT Sex Assigned At Male 1945 68793-9 [facility] Vital Signs Code Code System Vitals Name Values and Units Timing Information 96857-3 [facility] Weight Jqgyk=286.0 Units=Lbs 8462-4 [facility] Blood Pressure-Diastolic Value=64 Un its=mmHg 10/20/2021 8480-6 [facility] Blood Pressure-Systolic Hfnmk=771 Un its=mmHg 10/20/2021 8867-4 [facility] Heart rate Value=60.0 Units=/min 8310-5 [facility] Body Temperature Value=97.3 Units= F 10/20/2021 05710-3 [facility] O2 % BldC Oximetry Value=93.0 Units= % 10/20/2021 9279-1 [facility] Respiratory Rate Value=20.0 Units=/m in 10/17/2021 8302-2 [facility] Height Value=72.0 Units=Inches 10/13/2021
== END 2024-11-02 17:06 | disposition home or self-care (01) ==
PROVIDERS: Emergency Provider Family Medicine; PCP Family Medicine
DX: M54.12 Radiculopathy, cervical region (principal)
CPT/HCPCS: 72040; 99283; 99284